=== PATIENT | female | born 1945 | race African-American/Black ===

== ENCOUNTER 2017-02-18 12:45 | Inpatient (IN) | payer OTHER, MEDICAID ==
[2017-02-18] MEDS ORDERED: LEVAQUIN PREMIX IV 750 MG 750 MG/150 ML BAG IV SCH (14:26)
[2017-02-18] MEDS ORDERED: NS 1/2 1000 ML IV 1,000 ML IV ONE (14:36)
[2017-02-18] MEDS ORDERED: SALINE 3% 15 ML NEB TX NEB ONE (14:54)
[2017-02-18] MEDS: NS 1/2 1000 ML IV 1,000 ML IV SCH (15:15)
[2017-02-18 15:39] LABS: BASOPHILS % (AUTO) 0.2 % (0.2-1.0); HEMATOCRIT 35.4 % (36.0-47.0); HEMOGLOBIN 11.6 g/dL (12.0-16.0); LYMPHOCYTES # (AUTO) 0.6 X10^3/uL (1.3-2.9); LYMPHOCYTES % (AUTO) 7.5 % (21.0-51.0); MEAN CORPUSCULAR HEMOGLOBIN 26.7 pg (27.0-34.0); MEAN CORPUSCULAR HGB CONC 32.8 g/dL (33.0-35.0); MEAN CORPUSCULAR VOLUME 81.6 fL (80.0-100.0); MEAN PLATELET VOLUME 9.1 fL (7.4-11.0); MONOCYTES # (AUTO) 0.2 x10^3/uL (0.3-0.8); MONOCYTES % (AUTO) 2.4 % (0.0-13.0); NEUTROPHILS # (AUTO) 7.2 x10^3/uL (2.2-4.8); NEUTROPHILS % (AUTO) 89.9 % (42.0-75.0); PLATELET COUNT 191 X10^3/uL (150.0-450.0); RED BLOOD COUNT 4.33 X10^6/uL (3.5-5.4); RED CELL DISTRIBUTION WIDTH 17.3 % (11.6-16.5)
[2017-02-18 15:57] LABS: ALANINE AMINOTRANSFERASE 25 Units/L (12-78); ALBUMIN 3.1 g/dL (3.4-5.0); ALKALINE PHOSPHATASE 81 Units/L (46-116); ASPARTATE AMINO TRANSFERASE 25 Units/L (15-37); BLOOD UREA NITROGEN 16 mg/dL (7-18); CALCIUM 8.8 mg/dL (8.5-10.1); CARBON DIOXIDE 18.4 mmol/L (21-32); CHLORIDE 107 mmol/L (98-107); COR CA(FOR HYPOALB) 9.5 mg/dL (8.5-10.1); CREATININE 1.28 mg/dL (0.55-1.02); GLUCOSE 99 mg/dL (65-99); SODIUM 141 mmol/L (136-145); TOTAL PROTEIN 7.8 g/dL (6.4-8.2); eGFR BLACK RACES 53 (>60); eGFR NON BLACK RACES 44 (>60)
[2017-02-18 16:31] VITALS: BMI 31.5
[2017-02-18] MEDS ORDERED: PREVNAR 13 IM ONE (16:31)
[2017-02-18] MEDS: ROBITUSSIN DM PO SCH ×2 (16:42→20:28)
[2017-02-18] MEDS: DECADRON JET NEB NEB SCH ×2 (16:45→21:16)
[2017-02-18] MEDS: DUONEB 0.5 MG/3 MG NEB SCH ×2 (16:45→21:16)
--- NOTE | 2017-02-18 17:29 | RAD ---
HISTORY: Pneumonia Study: PA and lateral chest Comparison: October 09, 2016 Findings: The trachea is midline. The cardiac silhouette is unremarkable. The lungs are clear without focal infiltrate or effusion. The bony thorax is unremarkable. IMPRESSION: 1. No acute cardiopulmonary disease. Reported By:
[2017-02-18] MEDS: APRESOLINE TAB 25 MG PO SCH (20:27)
[2017-02-18] MEDS: CATAPRES TAB 0.1 MG PO SCH (20:27)
[2017-02-18] MEDS: LIPITOR TAB 40 MG PO SCH (20:28)
[2017-02-18] MEDS: NEURONTIN CAP 300 MG PO SCH (20:28)
[2017-02-18] MEDS ORDERED: PriLOSEC PO SCH (21:00)
[2017-02-19] MEDS: DUONEB 0.5 MG/3 MG NEB SCH ×6 (01:00→21:01)
[2017-02-19] MEDS ORDERED: NS 1/2 1000 ML IV 1,000 ML IV ONE ×2 (03:43→16:56)
[2017-02-19] MEDS: NS 1/2 1000 ML IV 1,000 ML IV SCH ×2 (04:26→16:59)
[2017-02-19 05:50] LABS: BASOPHILS % (AUTO) 0.4 % (0.2-1.0); HEMOGLOBIN 10.7 g/dL (12.0-16.0); LYMPHOCYTES # (AUTO) 1.4 X10^3/uL (1.3-2.9); LYMPHOCYTES % (AUTO) 15.3 % (21.0-51.0); MEAN CORPUSCULAR HEMOGLOBIN 27.7 pg (27.0-34.0); MEAN CORPUSCULAR HGB CONC 33.6 g/dL (33.0-35.0); MEAN CORPUSCULAR VOLUME 82.3 fL (80.0-100.0); MEAN PLATELET VOLUME 9.3 fL (7.4-11.0); MONOCYTES # (AUTO) 0.4 x10^3/uL (0.3-0.8); NEUTROPHILS # (AUTO) 7.2 x10^3/uL (2.2-4.8); NEUTROPHILS % (AUTO) 80.3 % (42.0-75.0); PLATELET COUNT 182 X10^3/uL (150.0-450.0); RED BLOOD COUNT 3.88 X10^6/uL (3.5-5.4); RED CELL DISTRIBUTION WIDTH 17.3 % (11.6-16.5)
[2017-02-19 05:52] LABS: ALBUMIN 2.7 g/dL (3.4-5.0); CALCIUM 8.2 mg/dL (8.5-10.1); CARBON DIOXIDE 21.9 mmol/L (21-32); COR CA(FOR HYPOALB) 9.2 mg/dL (8.5-10.1); CREATININE 1.24 mg/dL (0.55-1.02); TOTAL PROTEIN 7.2 g/dL (6.4-8.2)
[2017-02-19] MEDS ORDERED: PREVNAR 13 IM ONE (06:18)
[2017-02-19] MEDS: DECADRON JET NEB NEB SCH ×4 (08:53→21:01)
[2017-02-19] MEDS: ALBUMIN HUMAN 25%- 100ML 100 ML IV SCH (09:00)
[2017-02-19] MEDS: CATAPRES TAB 0.1 MG PO SCH ×3 (09:24→21:43)
[2017-02-19] MEDS: ASPIRIN EC 81 MG PO SCH (09:24)
[2017-02-19] MEDS: ZANTAC PO SCH ×2 (09:24→21:43)
[2017-02-19] MEDS: SYNTHROID 112 mcg TAB PO SCH (09:24)
[2017-02-19] MEDS: PLAVIX PO SCH (09:25)
[2017-02-19] MEDS: CELEXA PO SCH (09:27)
[2017-02-19] MEDS: NORVASC TAB 10 MG PO SCH (09:27)
[2017-02-19] MEDS: ROBITUSSIN DM PO SCH ×4 (09:32→21:44)
[2017-02-19] MEDS: CLARITIN PO SCH (09:39)
[2017-02-19] MEDS: LINZESS PO SCH (09:39)
[2017-02-19] MEDS: APRESOLINE TAB 25 MG PO SCH ×2 (09:39→21:42)
[2017-02-19] MEDS: SOLU-Medrol 40 MG VIAL IVP SCH ×3 (14:21→21:44)
--- NOTE | 2017-02-19 16:23 | DR.H&P ---
H&P - History & Physical for Day of: H&P Date: 02/18/17 - Chief Complaint Chief Complaint: SHORTNESS OF BREATH - Allergies Allergies/Adverse Reactions: Allergies Allergy/AdvReac Type Severity Reaction Status Date / Time [place] Allergy Verified 08/27/15 18:43 - History of Present Illness History of Present Illness: THIS IS A 71 YEAR OLD FEMALE, WHO IS DIRECT ADMITTED FOR COPD EXACERBATION AND BRONCHOPNEUMONIA. PATIENT REPORTS SHE HAS BEEN SHORT OF BREATH FOR APPROXIMATELY 5 DAYS. PATIENT STATES THAT SHE HAS BEEN USING HER NEB TREATMENTS DIRECTED WITH NO IMPROVEMENT IN SYMPTOMS. PATIENT HAS AUDIBLE WHEEZING ON ARRIVAL. ON AUSCULTATION, LUNGS ARE NOTED WITH COARSE WHEEZING THROUGHOUT. O2 SATURATION IS 96% ON NASAL CANNULA. LABS AND CXR OBTAINED. CBC WNL EXCEPT: H/H 11.6/35.6. CMP WNL EXCEPT: CARBON DIOXIDE 18.4, CREAT 1.28, GFR 53, ALBUMIN 3.1. CHEST XRAY REPORTS NO ACUTE CARDIOPULMOMARY DISEASE. WE ADMIT PATIENT AND START PNEUMONIA PROTOCOL WITH IV ANTIBIOTICS AND AGGRESSIVE NEB TREATMENTS. WE WILL CONTINUE TO MONITOR AND FOLLOW UP IN AM WITH LABS. - Past Medical History Past Medical History: Anemia, Anxiety, Arthritis, COPD, Coronary Artery Disease , Depression, Dyslipidemia, GERD, Hypertension, Hypothyroidism Additional Medical History: Bronchitis, Pneumonia, Constipation, Hemmorrhoids, Cholelithiasis, Frequent UTI's, Sinusitis, Allergic Rhinitis, Uterine Cancer, Cataracts, Hernia, Muscle Weakness, Previous Blood Transfusion - Past Surgical History Surgical History: Appendectomy, Cholecystectomy, Hysterectomy, Ortho Surgery, Other Additional Surgical History: Cataract surgery, Artificial Vein Grafts in Legs, 1 /2 Left Great Toe Removed - Family History Family Medical History: Cancer, Hypertension - Social History Does patient currently use any type of tobacco product: No Have you used tobacco products in the last 12 months: No Type of Tobacco Use: None Alcohol Use: None Drug Use: None - Medications Home Medications: Amlodipine Besylate [Norvasc] 1 tab PO DAILY 08/27/15 Citalopram 20 mg Tab [CELEXA 20 MG *] 2 tab PO DAILY 08/27/15 Clonidine HCl [CATAPRES 0.1 MG TAB *] 1 tab PO BID 08/27/15 Fluticasone-Salmeterol 500/50 [ADVAIR DISKUS 500/50 60-DOSE *] 1 each INH BID 08/27/15 Hydralazine HCl [Hydralazine HCl 50 mg] 1 tab PO BID 08/27/15 Omeprazole [Prilosec] 1 cap PO BID 08/27/15 Aspirin [Aspirin Adult Low Dose] 81 mg PO DAILY 10/07/16 Atorvastatin Calcium [LIPITOR Tab 40 mg *] 40 mg PO HS 10/07/16 Clopidogrel Bisulfate [PLAVIX TAB 75 MG *] 75 mg PO DAILY 10/07/16 Gabapentin 300 mg PO HS 10/07/16 Linaclotide [Linzess] 290 mcg PO DAILY 10/07/16 Levothyroxine Sodium [SYNTHROID 112 mcg *] 1 tab PO DAILY 10/08/16 Albuterol Neb 2.5MG/ 3Ml [ALBUTEROL NEB 2.5MG/ 3ML *] 1 each INH QID 02/18/17 Loratadine 1 cap PO DAILY 02/18/17 Methylprednisolone 1 tab PO DAILY 02/18/17 Mometasone Furoate-Formoterol [Dulera 200/5 mcg] 1 puff INH BID 02/18/17 - Review of Systems Constitutional: Weakness, Malaise Eyes: No Symptoms Reported. denies: Pain, Vision Change, Conjunctivae Inflammation, Eyelid Inflammation, Redness ENT: No Symptoms Reported. denies: Ear Pain, Ear Discharge, Nose Pain, Nose Discharge, Nose Congestion, Mouth Pain, Mouth Swelling, Throat Pain, Throat Swelling Respiratory: Cough, Shortness of Breath, SOB with Excertion, Sputum, Wheezing. denies: Hemoptysis, Pleuritic Pain Cardiovascular: No Symptoms Reported. denies: Chest Pain, Palpitations, Orthopnea, Paroxysmal Noc. Dyspnea, Edema, Light Headedness Gastrointestinal: No Symptoms Reported. denies: Nausea, Vomiting, Abdominal Pain, Diarrhea, Constipation, Melena, Hematochezia Genitourinary: No Symptoms Reported. denies: Dysuria, Frequency, Incontinence, Hematuria, Retention Musculoskeletal: No Symptoms Reported. denies: Shoulder Pain, Arm Pain, Back Pain, Hand Pain, Leg Pain, Foot Pain, Neck Pain Skin: No Symptoms Reported. denies: Rash, Lesions, Jaundice, Bruising, Wound, Ecchymosis Neurological: No Symptoms Reported. denies: Weakness, Numbness, Incoordination , Change in Speech, Confusion - Physical Exam Vital Signs: Temperature 97.8 F Pulse Rate [Apical] 78 Pulse Rate 70 Respiratory Rate 22 Blood Pressure [Right Arm] 133/59 Blood Pressure [Left Arm] 177/68 Blood Pressure [Left Radial 150/80 Artery] Blood Pressure 159/72 O2 Sat by Pulse Oximetry 98 Oriented: Normal, Time, Person, Place Eyes: Normal. negative: Blurred Vision, Diplopia, Discharge, Pain, Redness, Photophobia Ear: Normal. negative: Swelling, Ecchymosis, Hemotypanum, Abrasion, Laceration Nose: Normal. negative: Injected, Discharge, Blood Throat: Dry. negative: Tonsillar Hypertrophy, Exudate Respiratory: Wheezes Throughout Cardiovascular: Normal. negative: Murmur, Edema : Normal. negative: Dysuria, Hematuria, Frequency, Discharge, Bleeding, Auscultation: Bowel Sounds: Normal. negative: Bruit Palpation: Normal. negative: Spleen Enlarged, Liver Enlarged, Mass Pulsatile Tenderness: Normal. negative: Rebound, Guarding, Rigidity Skin: Normal. negative: Diaphoresis, Wound, Bruising, Ecchymosis Musculoskeletal: Instability Psychiatric: Normal Mood Description: Anxious Affect: Anxious Speech Pattern: Clear, Appropriate - Assessment/Plan (1) COPD (chronic obstructive pulmonary disease) Qualifiers: COPD type: COPD with acute exacerbation Chronic bronchitis type: C Emphysema type: E Qualified Code(s): J44.1 - Chronic obstructive pulmonary disease with (acute) exacerbation Status: Chronic Plan: ADMIT PATIENT, START PNEUMONIA PROTOCOL WITH IV ANTIBIOTICS, NEB TREATMENTS, SUPPLEMENTAL OXGYEN, MONITOR LABS AND CHEST XRAY. (2) Bronchopneumonia Status: Acute Plan: ABOVE. (3) Respiratory distress Status: Acute Plan: ABOVE. (4) Hypertension Qualifiers: Hypertension type: essential hypertension Qualified Code(s): I10 - Essential (primary) hypertension Status: Chronic (5) GERD (gastroesophageal reflux disease) Qualifiers: Esophagitis presence: esophagitis presence not specified Qualified Code(s) : K21.9 - Gastro-esophageal reflux disease without esophagitis Status: Chronic (6) History of anemia Status: Chronic (7) History of uterine cancer Status: Chronic (8) Depression Qualifiers: Depression Type: D Major depression recurrence: M Active/Remission status : A Major depression episode severity: M Psychotic features: P Trimester: T Status: Chronic (9) Hypothyroidism Qualifiers: Hypothyroidism type: due to medication Qualified Code(s): E03.2 - Hypothyroidism due to medicaments and other exogenous substances Status: Chronic (10) Anxiety Status: Chronic (11) Arthritis Status: Chronic
--- NOTE | 2017-02-19 16:33 | PCM.PROG ---
Progress Note - Progress Note for Day of Date: 02/19/17 - Subjective Subjective: PATIENT CONTINUES WITH NON-PRODUCTIVE, PERSISTENT COUGH. PATIENT CONTINUES WITH SHORTNESS OF BREATH AT REST. ON AUSCULTATION, LUNGS ARE NOTED WITH WHEEZING THROUGHOUT. BLOOD PRESSURE IS ELEVATED, 194/76. CBC WNL EXCEPT: H/H 10.7/32.0. CMP WNL EXCEPT: CREAT 1.24, GFR 45, GLUCOSE 116, CALCIUM 8.2, ALBUMIN 2.7. WE WILL START ALUBMIN IV, SOLUMEDROL, AND INCREASE CLONIDINE TO TID FOR HYPERTENSION. WE WILL CONTINUE IV ANTIBIOTICS AND NEB TREATMENTS AND MONITOR. - Past Medical Family Social History Past Med/Fam/Surg Hx: No changes since H&P Allergies: Allergies [place] Allergy (Verified 08/27/15 18:43) - Review of Systems ROS: No change since H&P - Vital Signs and I&O's Vital Signs: Temperature 97.8 F Pulse Rate [Apical] 78 Pulse Rate 70 Respiratory Rate 22 Blood Pressure [Right Arm] 133/59 Blood Pressure [Left Arm] 177/68 Blood Pressure [Left Radial 150/80 Artery] Blood Pressure 159/72 O2 Sat by Pulse Oximetry 98 Intake and Output: Intake & Output 02/17/17 02/18/17 02/19/17 02/20/17 11:59 11:59 11:59 11:59 Intake Total 1509 Output Total 1050 Balance 459 - Physical Exam Oriented: Normal, Time, Person, Place Eyes: Normal. negative: Blurred Vision, Diplopia, Discharge, Pain, Redness, Photophobia Ear: Normal. negative: Swelling, Ecchymosis, Hemotypanum, Abrasion, Laceration Nose: Normal. negative: Injected, Discharge, Blood Throat: Dry. negative: Tonsillar Hypertrophy, Exudate Respiratory: Generalized, Wheezes Cardiovascular: Normal. negative: Murmur, Edema : Normal. negative: Dysuria, Hematuria, Frequency, Discharge, Bleeding, Auscultation: Bowel Sounds: Normal. negative: Bruit Palpation: Normal. negative: Spleen Enlarged, Liver Enlarged, Mass Pulsatile Tenderness: Normal. negative: Rebound, Guarding, Rigidity Skin: Normal. negative: Diaphoresis, Wound, Bruising, Ecchymosis Musculoskeletal: Instability Psychiatric: Normal Mood Description: Calm, Appropriate Affect: Normal Speech Pattern: Clear, Appropriate - Laboratory and Diagnostics Result Diagrams: 02/19/17 03:35 02/19/17 03:35 Labs: 02/18/17 16:30 Sputum - Expectorated Sputum Sputum Culture - Preliminary 02/18/17 16:30 Sputum - Expectorated Sputum - Final Laboratory WBC 9.0 X10^3/uL (3.6-10.0) 02/19/17 03:35 RBC 3.88 X10^6/uL (3.5-5.4) 02/19/17 03:35 Hgb 10.7 g/dL (12.0-16.0) L 02/19/17 03:35 Hct 32.0 % (36.0-47.0) L 02/19/17 03:35 MCV 82.3 fL (80.0-100.0) 02/19/17 03:35 MCH 27.7 pg (27.0-34.0) 02/19/17 03:35 MCHC 33.6 g/dL (33.0-35.0) 02/19/17 03:35 RDW 17.3 % (11.6-16.5) H 02/19/17 03:35 Plt Count 182 X10^3/uL (150.0-450.0) 02/19/17 03:35 MPV 9.3 fL (7.4-11.0) 02/19/17 03:35 Neut % 80.3 % (42.0-75.0) H 02/19/17 03:35 Lymph % 15.3 % (21.0-51.0) L 02/19/17 03:35 [place] % 4.0 % (0.0-13.0) 02/19/17 03:35 Eos % 0.0 % (0.9-2.9) L 02/19/17 03:35 Baso % 0.4 % (0.2-1.0) 02/19/17 03:35 Neut # 7.2 x10^3/uL (2.2-4.8) H 02/19/17 03:35 Lymph # 1.4 X10^3/uL (1.3-2.9) 02/19/17 03:35 [place] # 0.4 x10^3/uL (0.3-0.8) 02/19/17 03:35 Eos # 0.0 x10^3/uL (0.0-0.2) 02/19/17 03:35 Baso # 0.0 X10^3/uL (0.0-0.1) 02/19/17 03:35 Absolute Nucleated RBC 0.0 /100WBC 02/19/17 03:35 Sodium 138 mmol/L (136-145) 02/19/17 03:35 Corrected Sodium 138 mmol/L (136-145) 02/19/17 03:35 Potassium 3.7 mmol/L (3.5-5.1) 02/19/17 03:35 Chloride 106 mmol/L (98-107) 02/19/17 03:35 Carbon Dioxide 21.9 mmol/L (21-32) 02/19/17 03:35 BUN 18 mg/dL (7-18) 02/19/17 03:35 Creatinine 1.24 mg/dL (0.55-1.02) H 02/19/17 03:35 Est GFR (MDRD) Af Amer 55 (>60) L 02/19/17 03:35 Est GFR (MDRD) Non-Af 45 (>60) L 02/19/17 03:35 Glucose 116 mg/dL (65-99) H 02/19/17 03:35 Calcium 8.2 mg/dL (8.5-10.1) L 02/19/17 03:35 Corrected Calcium 9.2 mg/dL (8.5-10.1) 02/19/17 03:35 Total Bilirubin 0.30 mg/dL (0.2-1.0) 02/19/17 03:35 AST 20 Units/L (15-37) 02/19/17 03:35 ALT 25 Units/L (12-78) 02/19/17 03:35 Alkaline Phosphatase 74 Units/L (46-116) 02/19/17 03:35 Total Protein 7.2 g/dL (6.4-8.2) 02/19/17 03:35 Albumin 2.7 g/dL (3.4-5.0) L 02/19/17 03:35 Globulin 4.5 g/dL (2.5-4.5) 02/19/17 03:35 Albumin/Globulin Ratio 0.6 Ratio (1.1-2.1) L 02/19/17 03:35 - Plan (1) COPD (chronic obstructive pulmonary disease) Status: Chronic Qualifiers: COPD type: COPD with acute exacerbation Chronic bronchitis type: C Emphysema type: E Qualified Code(s): J44.1 - Chronic obstructive pulmonary disease with (acute) exacerbation Plan: START SOLUMEDROL, CONTINUE IV ANTIBIOTICS, NEB TREATMENTS, SUPPLEMENTAL OXGYEN, MONITOR LABS AND CHEST XRAY. (2) Bronchopneumonia Status: Acute Plan: ABOVE. (3) Hypoalbuminemia Status: Acute Plan: START ALBUMIN, MONITOR LABS. (4) Respiratory distress Status: Acute Plan: ABOVE. (5) Hypertension Status: Chronic Qualifiers: Hypertension type: essential hypertension Qualified Code(s): I10 - Essential (primary) hypertension Plan: INCREASE CLONIDINE TO TID, MONITOR. 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
[2017-02-19] MEDS: NEURONTIN CAP 300 MG PO SCH (21:42)
[2017-02-19] MEDS: LIPITOR TAB 40 MG PO SCH (21:42)
[2017-02-20] MEDS: DUONEB 0.5 MG/3 MG NEB SCH ×6 (00:28→20:36)
[2017-02-20] MEDS: SOLU-Medrol 40 MG VIAL IVP SCH ×3 (05:54→21:20)
[2017-02-20] MEDS: CATAPRES TAB 0.1 MG PO SCH ×3 (05:54→21:20)
[2017-02-20 06:34] LABS: ALBUMIN 3.2 g/dL (3.4-5.0); CALCIUM 8.6 mg/dL (8.5-10.1); CARBON DIOXIDE 17.8 mmol/L (21-32); COR CA(FOR HYPOALB) 9.2 mg/dL (8.5-10.1); CREATININE 1.16 mg/dL (0.55-1.02); TOTAL PROTEIN 7.6 g/dL (6.4-8.2)
[2017-02-20 07:29] LABS: BASOPHILS % (AUTO) 0 % (0.2-1.0); HEMATOCRIT 31.8 % (36.0-47.0); HEMOGLOBIN 10.6 g/dL (12.0-16.0); LYMPHOCYTES # (AUTO) 0.8 X10^3/uL (1.3-2.9); LYMPHOCYTES % (AUTO) 8.6 % (21.0-51.0); MEAN CORPUSCULAR HEMOGLOBIN 26.7 pg (27.0-34.0); MEAN CORPUSCULAR HGB CONC 33.4 g/dL (33.0-35.0); MEAN CORPUSCULAR VOLUME 80.1 fL (80.0-100.0); MEAN PLATELET VOLUME 8.7 fL (7.4-11.0); MONOCYTES # (AUTO) 0.2 x10^3/uL (0.3-0.8); MONOCYTES % (AUTO) 1.8 % (0.0-13.0); NEUTROPHILS # (AUTO) 8.7 x10^3/uL (2.2-4.8); NEUTROPHILS % (AUTO) 89.6 % (42.0-75.0); PLATELET COUNT 225 X10^3/uL (150.0-450.0); RED BLOOD COUNT 3.97 X10^6/uL (3.5-5.4); RED CELL DISTRIBUTION WIDTH 17.2 % (11.6-16.5); WHITE BLOOD COUNT 9.7 X10^3/uL (3.6-10.0)
[2017-02-20] MEDS ORDERED: NS 1/2 1000 ML IV 1,000 ML IV ONE ×2 (07:38→21:15)
--- NOTE | 2017-02-20 07:47 | RAD ---
HISTORY: Cough and congestion Study: Single view of the chest. Comparison: 02/18/2017 Findings: The cardiomediastinal silhouette is normal. No focal consolidations, pleural effusions or pneumothor ax. Osseous structures demonstrate no acute abnormality. Patchy subsegmental atelectasis in the righ t lung. IMPRESSION: 1. No acute cardiopulmonary process. Patchy subsegmental atelectasis in the right lung may be secon yelena to splinting. Reported By:
[2017-02-20] MEDS: LINZESS PO SCH (07:59)
[2017-02-20] MEDS: ZANTAC PO SCH ×2 (07:59→21:20)
[2017-02-20] MEDS: CLARITIN PO SCH (07:59)
[2017-02-20] MEDS: ASPIRIN EC 81 MG PO SCH (07:59)
[2017-02-20] MEDS: CELEXA PO SCH (07:59)
[2017-02-20] MEDS: NORVASC TAB 10 MG PO SCH (07:59)
[2017-02-20] MEDS: APRESOLINE TAB 25 MG PO SCH ×2 (07:59→21:20)
[2017-02-20] MEDS: ROBITUSSIN DM PO SCH ×4 (08:00→21:20)
[2017-02-20] MEDS: ALBUMIN HUMAN 25%- 100ML 100 ML IV SCH (08:00)
[2017-02-20] MEDS: NS 1/2 1000 ML IV 1,000 ML IV SCH ×4 (08:01→22:27)
[2017-02-20] MEDS: PLAVIX PO SCH (08:02)
[2017-02-20] MEDS: DECADRON JET NEB NEB SCH ×4 (09:13→20:36)
[2017-02-20] MEDS: SYNTHROID 112 mcg TAB PO SCH (09:40)
[2017-02-20] MEDS ORDERED: ROCEPHIN 1 GM IV PREMIX * OUT OF STOCK 50 ML IV ONE (14:51)
[2017-02-20] MEDS: ROCEPHIN VIAL 1 GM 1 GM in NS 50 ML IV + SPIKE MINIBAG* 50 ML IV SCH (15:14)
[2017-02-20] MEDS ORDERED: LEVAQUIN PREMIX IV 750 MG 750 MG/150 ML BAG IV SCH (16:00)
[2017-02-20] MEDS ORDERED: MORPHINE SULFATE INJ 2 MG IVP PRN (17:38)
[2017-02-20] MEDS: NEURONTIN CAP 300 MG PO SCH (21:20)
[2017-02-20] MEDS: TUSSIONEX PENNKINETIC SUSP PO PRN (21:20)
[2017-02-20] MEDS: LIPITOR TAB 40 MG PO SCH (21:20)
[2017-02-21] MEDS: DUONEB 0.5 MG/3 MG NEB SCH ×6 (00:49→21:35)
[2017-02-21] MEDS: CATAPRES TAB 0.1 MG PO SCH ×3 (05:21→21:34)
[2017-02-21] MEDS: SOLU-Medrol 40 MG VIAL IVP SCH ×3 (05:21→21:34)
[2017-02-21 05:27] LABS: BASOPHILS % (AUTO) 0.1 % (0.2-1.0); HEMATOCRIT 31.7 % (36.0-47.0); HEMOGLOBIN 10.6 g/dL (12.0-16.0); LYMPHOCYTES # (AUTO) 0.9 X10^3/uL (1.3-2.9); LYMPHOCYTES % (AUTO) 7.4 % (21.0-51.0); MEAN CORPUSCULAR HEMOGLOBIN 27.7 pg (27.0-34.0); MEAN CORPUSCULAR HGB CONC 33.3 g/dL (33.0-35.0); MEAN CORPUSCULAR VOLUME 83.3 fL (80.0-100.0); MEAN PLATELET VOLUME 9.2 fL (7.4-11.0); MONOCYTES # (AUTO) 0.3 x10^3/uL (0.3-0.8); MONOCYTES % (AUTO) 2.9 % (0.0-13.0); NEUTROPHILS # (AUTO) 10.4 x10^3/uL (2.2-4.8); NEUTROPHILS % (AUTO) 89.6 % (42.0-75.0); PLATELET COUNT 237 X10^3/uL (150.0-450.0); RED BLOOD COUNT 3.81 X10^6/uL (3.5-5.4); RED CELL DISTRIBUTION WIDTH 17.1 % (11.6-16.5); WHITE BLOOD COUNT 11.6 X10^3/uL (3.6-10.0)
[2017-02-21 05:39] LABS: ALANINE AMINOTRANSFERASE 25 Units/L (12-78); ALBUMIN 3.4 g/dL (3.4-5.0); ALKALINE PHOSPHATASE 68 Units/L (46-116); ASPARTATE AMINO TRANSFERASE 16 Units/L (15-37); BLOOD UREA NITROGEN 16 mg/dL (7-18); CALCIUM 8.5 mg/dL (8.5-10.1); CARBON DIOXIDE 20.4 mmol/L (21-32); CHLORIDE 107 mmol/L (98-107); COR NA(FOR HYPERGLY) 141 mmol/L (136-145); CREATININE 1.31 mg/dL (0.55-1.02); GLUCOSE 140 mg/dL (65-99); SODIUM 140 mmol/L (136-145); TOTAL PROTEIN 7.5 g/dL (6.4-8.2); eGFR BLACK RACES 51 (>60); eGFR NON BLACK RACES 42 (>60)
[2017-02-21 06:20] LABS: BAND NEUTROPHILS % 2 % (0-10)
[2017-02-21 06:21] LABS: PLATELET MORPHOLOGY COMMENT NORMAL (NORMAL)
--- NOTE | 2017-02-21 07:31 | RAD ---
HISTORY: Cough and congestion Study: Single view of the chest. Comparison: 02/20/2017 Findings: The cardiomediastinal silhouette is normal. No focal consolidations, pleural effusions or pneumothor ax. Osseous structures demonstrate no acute abnormality. IMPRESSION: 1. No acute cardiopulmonary process. Reported By:
[2017-02-21] MEDS: ROBITUSSIN DM PO SCH ×4 (08:19→20:30)
[2017-02-21] MEDS: ZANTAC PO SCH ×2 (08:20→20:31)
[2017-02-21] MEDS: LINZESS PO SCH (08:20)
[2017-02-21] MEDS: PLAVIX PO SCH (08:20)
[2017-02-21] MEDS: CLARITIN PO SCH (08:20)
[2017-02-21] MEDS: NORVASC TAB 10 MG PO SCH (08:20)
[2017-02-21] MEDS: ASPIRIN EC 81 MG PO SCH (08:21)
[2017-02-21] MEDS: CELEXA PO SCH (08:21)
[2017-02-21] MEDS: APRESOLINE TAB 25 MG PO SCH ×2 (08:21→20:31)
[2017-02-21] MEDS: SYNTHROID 112 mcg TAB PO SCH (08:21)
[2017-02-21] MEDS: ALBUMIN HUMAN 25%- 100ML 100 ML IV SCH (08:21)
[2017-02-21] MEDS: ROCEPHIN VIAL 1 GM 1 GM in NS 50 ML IV + SPIKE MINIBAG* 50 ML IV SCH (08:22)
[2017-02-21] MEDS: DECADRON JET NEB NEB SCH ×4 (08:45→21:35)
[2017-02-21] MEDS ORDERED: NS 1/2 1000 ML IV 1,000 ML IV ONE ×2 (12:04→23:29)
[2017-02-21] MEDS: NS 1/2 1000 ML IV 1,000 ML IV SCH ×2 (12:08→23:38)
[2017-02-21] MEDS: TUSSIONEX PENNKINETIC SUSP PO PRN (20:30)
[2017-02-21] MEDS: LIPITOR TAB 40 MG PO SCH (20:31)
[2017-02-21] MEDS: NEURONTIN CAP 300 MG PO SCH (20:31)
[2017-02-22] MEDS: DUONEB 0.5 MG/3 MG NEB SCH ×4 (00:49→12:01)
[2017-02-22 04:56] LABS: BASOPHILS % (AUTO) 0.2 % (0.2-1.0); HEMATOCRIT 32.2 % (36.0-47.0); HEMOGLOBIN 10.8 g/dL (12.0-16.0); LYMPHOCYTES # (AUTO) 0.8 X10^3/uL (1.3-2.9); MEAN CORPUSCULAR HEMOGLOBIN 27.8 pg (27.0-34.0); MEAN CORPUSCULAR HGB CONC 33.4 g/dL (33.0-35.0); MEAN PLATELET VOLUME 8.8 fL (7.4-11.0); MONOCYTES # (AUTO) 0.5 x10^3/uL (0.3-0.8); MONOCYTES % (AUTO) 4.2 % (0.0-13.0); NEUTROPHILS # (AUTO) 9.6 x10^3/uL (2.2-4.8); NEUTROPHILS % (AUTO) 88.6 % (42.0-75.0); PLATELET COUNT 260 X10^3/uL (150.0-450.0); RED BLOOD COUNT 3.88 X10^6/uL (3.5-5.4); WHITE BLOOD COUNT 10.9 X10^3/uL (3.6-10.0)
[2017-02-22 05:14] LABS: ALANINE AMINOTRANSFERASE 31 Units/L (12-78); ALBUMIN 3.4 g/dL (3.4-5.0); ALKALINE PHOSPHATASE 64 Units/L (46-116); ASPARTATE AMINO TRANSFERASE 25 Units/L (15-37); BLOOD UREA NITROGEN 17 mg/dL (7-18); CALCIUM 8.6 mg/dL (8.5-10.1); CARBON DIOXIDE 20.5 mmol/L (21-32); CHLORIDE 108 mmol/L (98-107); COR NA(FOR HYPERGLY) 143 mmol/L (136-145); CREATININE 1.17 mg/dL (0.55-1.02); GLUCOSE 123 mg/dL (65-99); SODIUM 142 mmol/L (136-145); TOTAL PROTEIN 7.2 g/dL (6.4-8.2); eGFR BLACK RACES 58 (>60); eGFR NON BLACK RACES 48 (>60)
[2017-02-22] MEDS: CATAPRES TAB 0.1 MG PO SCH ×2 (05:27→13:51)
[2017-02-22] MEDS: SOLU-Medrol 40 MG VIAL IVP SCH (05:27)
[2017-02-22] MEDS: NS 1/2 1000 ML IV 1,000 ML IV SCH (05:28)
--- NOTE | 2017-02-22 06:32 | RAD ---
HISTORY: Shortness of breath Study: Chest one view Comparison: February 21, 2017 Findings: The heart is upper limits normal in size. The khadar are normal. The aorta is calcified. No congestive heart failure is noted. The lungs are hyperinflated with the exception of some subsegmental atelect asis in the right perihilar region. No pleural effusions or infiltrates are identified. The bony tho rax is unremarkable. IMPRESSION: No definite acute findings Hyperinflation Reported By:
[2017-02-22] MEDS: ALBUMIN HUMAN 25%- 100ML 100 ML IV SCH (08:28)
[2017-02-22] MEDS: ROCEPHIN VIAL 1 GM 1 GM in NS 50 ML IV + SPIKE MINIBAG* 50 ML IV SCH (08:31)
[2017-02-22] MEDS: SYNTHROID 112 mcg TAB PO SCH (08:32)
[2017-02-22] MEDS: CELEXA PO SCH (08:32)
[2017-02-22] MEDS: ZANTAC PO SCH (08:32)
[2017-02-22] MEDS: ROBITUSSIN DM PO SCH ×2 (08:32→13:51)
[2017-02-22] MEDS: CLARITIN PO SCH (08:32)
[2017-02-22] MEDS: ASPIRIN EC 81 MG PO SCH (08:33)
[2017-02-22] MEDS: NORVASC TAB 10 MG PO SCH (08:33)
[2017-02-22] MEDS: APRESOLINE TAB 25 MG PO SCH (08:33)
[2017-02-22] MEDS: PLAVIX PO SCH (08:34)
[2017-02-22] MEDS: LINZESS PO SCH (08:35)
[2017-02-22] MEDS: DECADRON JET NEB NEB SCH ×2 (09:05→12:01)
[2017-02-22] MEDS ORDERED: LASIX IVP ONE (09:16)
[2017-02-22 14:07] VITALS: BP 152/54
== END 2017-02-22 15:10 | disposition home health service (06) | DRG 190 ==
LOC: ICU 12:45 → OBSVTOIN 02-20 08:10
PROVIDERS: ADMIT Internal Medicine; ATTEND Internal Medicine
PROC: 3E0234Z Introduction of Serum, Toxoid and Vaccine into Muscle, Percutaneous Approach (ICD-10-PCS; principal; 2017-02-19)
DX: J44.1 Chronic obstructive pulmonary disease with (acute) exacerbation (principal); J15.5 Pneumonia due to Escherichia coli; R06.02 Shortness of breath; I25.10 Atherosclerotic heart disease of native coronary artery without angina pectoris; E78.2 Mixed hyperlipidemia; K21.9 Gastro-esophageal reflux disease without esophagitis; E03.8 Other specified hypothyroidism; M13.89 Other specified arthritis, multiple sites; R06.09 Other forms of dyspnea; F41.8 Other specified anxiety disorders
CPT/HCPCS: 36415; 71010; 71020; 80053; 85025; 87040; 87070; 87077; 87186; 87205; 94640; A4222; P9047; 90670; G0378; J0696; J1940; J1956; J2270; J2920; J7620

== ENCOUNTER 2017-05-26 13:23 | Emergency (ER) | payer OTHER, MEDICAID ==
[2017-05-26 13:32] VITALS: BP 151/67; BMI 24.7
[2017-05-26] MEDS ORDERED: SOLU-Medrol 125 MG VIAL IVP ONE (15:06)
[2017-05-26] MEDS ORDERED: DUONEB 0.5 MG/3 MG NEB ONE (15:06)
--- NOTE | 2017-05-26 15:08 | DR.SOBA ---
HPI - Time Seen Time seen: 15:00 - Primary Care Physician Primary Care Physician: BRIEN - HPI Comment HPI Comment: PATIENT HAVE COPD. INCREASING SOB BREATH TODAY. PRODUCTIVE COUGH, SPUTUM YELLOW NOW. NO FEVER. CHEST TIGHTNESS. HOME MED DID NOT HELP. - Complaints Chief Complaint Doctors Comments: SOB, COUGH Chief Complaint:: SHORT OF BREATH Self Treatment fo Chief Complaint: BREATHING TREATMENT AND OXYGEN ON AT 2 LPM. - Reviewed Nurses Notes Reviewed: Yes - Source History Provided: Patient - Mode of Arrival Mode of Arrival: Ambulatory - Timing Onset of Chief Complaint: 05/26/17 - Duration Duration: Hours - Context Onset:: At Rest PE Risk Factors:: None History of:: COPD Prehospital Care:: Inhaled B2 - Modifying Factors Worsens:: Exertion Improves:: Nothing - Associated Signs and Symptoms Associated Signs and Symptoms: Wheeze, Cough - If Chest Pain Quality: Other (TIGHTNESS) Location: Right Upper Chest, Right Lower Chest, Left Upper Chest, Left Lower Chest - If Cough Cough: Nonproductive, Yellow PMH - PMH Past Medical History: Yes Past Medical History: Anemia, Anxiety, Arthritis, COPD, Coronary Artery Disease , Depression, Dyslipidemia, GERD, Hypertension, Hypothyroidism Past Surgical History: Yes Surgical History: Appendectomy, Cholecystectomy, Hysterectomy, Ortho Surgery, Other - Family History History of Family Medical Conditions: Yes Family Medical History: Cancer, Hypertension - Social History Does patient currently use any type of tobacco product: Yes Have you used tobacco products in the last 12 months: Yes Type of Tobacco Use: Cigarettes Does any household member use tobacco: No Alcohol Use: Rarely Do you use any recreational Drugs:: No Lives With: Spouse Lives Where: Home - infectious screening In the last 2 months have you had wt loss of >10#?: NO Have you had fever, night sweats or hemotysis?: No Have you traveled outside the country in the last 6 months?: No Isolation: Standard ROS - Review of Systems Constitutional: Weakness, Fatigue. negative: Chills, Fever Eyes: No Symptoms Reported. negative: Eye Pain, Discharge ENTM: Nose Discharge, Nose Congestion, Throat Pain. negative: Ear Pain Respiratoy: Productive Cough, Short of Breath, Wheezing. negative: Hemoptysis Cardiovascular: Chest Pain. negative: Edema, Palpitations, Syncope Gastrointestinal/Abdominal: No Symptoms Reported. negative: Abdominal Pain, Diarrhea, Nausea, Vomiting Genitourinary: negative: Dysuria, Frequency, Hematuria Neurological: No Symptoms Reported, Weakness, Dizziness. negative: Headache Musculoskeletal: Muscle Pain Integumentary: No Symptoms Reported Hematologic/Lymphatic: No Symptoms Reported Endocrine: No Symptoms Reported All Other Systems: Reviewed and Negative PE - Vital Signs Vitals: Temperature 98.8 F Pulse Rate 74 Respiratory Rate 20 Blood Pressure [Right Arm] 152/54 Blood Pressure [Left Arm] 177/68 Blood Pressure [Left Radial 150/80 Artery] Blood Pressure 151/67 O2 Sat by Pulse Oximetry 100 - General Limitations: No Limitations General Appearance: Alert - Head Head Exam: Normal Inspection - Eyes Eye exam: Normal Appearance - ENT ENT Exam: Normal External Ear Exam - Neck Neck Exam: Trachea Midline. negative: Tenderness, Meningismus, Lymphadenopathy - Chest Chest Inspection: Symmetric Chest Wall Rise - Respiratory Respiratory Exam: Accessory Muscle Use, Prolonged Expiratory Phase, Respiratory Distress Respiratory Exam: Bilateral Wheezing, Bilateral Rhonchi, Upper Wheezing, Upper Rhonchi, Lower Wheezing, Lower Rhonchi - Cardiovascular Cardiovascular Exam: Regular Rate, Normal Rhythm, Normal Heart Sounds - Abdominal Exam Abdominal Exam: Normal Bowel Sounds, Soft. negative: Tenderness - Extremities Extremities Exam: Normal Inspection - Back Back Exam: Normal Inspection - Neurologic Neurological Exam: Alert, Oriented X3 - Psychiatric Psychiatric Exam: Anxious - Skin Skin Exam: Normal Color MDM - Additional Information Obtained Additional Information Obtained From: Family - Differential Diagnosis Differential Diagnosis: COPD, Mycardial Infarction, Pneumonia, Pneumothorax Course - Treatment Treatment: SEE ORDERS. - Education/Counseling Education/Counseling: Patient, Education Educated On: Treatment, Diagnosis, Needs for Follow Up ROR - Labs Reviewed Laboratory Results Reviewed?: Yes Result Diagrams: 05/26/17 15:12 05/26/17 15:12 Laboratory: WBC 6.4 X10^3/uL (3.6-10.0) 05/26/17 15:12 RBC 4.46 X10^6/uL (3.5-5.4) 05/26/17 15:12 Hgb 12.3 g/dL (12.0-16.0) 05/26/17 15:12 Hct 36.4 % (36.0-47.0) 05/26/17 15:12 MCV 81.5 fL (80.0-100.0) 05/26/17 15:12 MCH 27.4 pg (27.0-34.0) 05/26/17 15:12 MCHC 33.7 g/dL (33.0-35.0) 05/26/17 15:12 RDW 18.0 % (11.6-16.5) H 05/26/17 15:12 Plt Count 215 X10^3/uL (150.0-450.0) 05/26/17 15:12 MPV 9.0 fL (7.4-11.0) 05/26/17 15:12 Neut % 73.9 % (42.0-75.0) 05/26/17 15:12 Lymph % 17.7 % (21.0-51.0) L 05/26/17 15:12 [place] % 7.6 % (0.0-13.0) 05/26/17 15:12 Eos % 0.1 % (0.9-2.9) L 05/26/17 15:12 Baso % 0.7 % (0.2-1.0) 05/26/17 15:12 Neut # 4.8 x10^3/uL (2.2-4.8) 05/26/17 15:12 Lymph # 1.1 X10^3/uL (1.3-2.9) L 05/26/17 15:12 [place] # 0.5 x10^3/uL (0.3-0.8) 05/26/17 15:12 Eos # 0.0 x10^3/uL (0.0-0.2) 05/26/17 15:12 Baso # 0.0 X10^3/uL (0.0-0.1) 05/26/17 15:12 Absolute Nucleated RBC 0.1 /100WBC 05/26/17 15:12 Sodium 138 mmol/L (136-145) 05/26/17 15:12 Corrected Sodium TNP 05/26/17 15:12 Potassium 4.6 mmol/L (3.5-5.1) 05/26/17 15:12 Chloride 105 mmol/L (98-107) 05/26/17 15:12 Carbon Dioxide 24.8 mmol/L (21-32) 05/26/17 15:12 BUN 25 mg/dL (7-18) H 05/26/17 15:12 Creatinine 1.61 mg/dL (0.55-1.02) H 05/26/17 15:12 Est GFR (MDRD) Af Amer 40 (>60) L 05/26/17 15:12 Est GFR (MDRD) Non-Af 33 (>60) L 05/26/17 15:12 Glucose 88 mg/dL (65-99) 05/26/17 15:12 Calcium 8.3 mg/dL (8.5-10.1) L 05/26/17 15:12 Corrected Calcium TNP 05/26/17 15:12 Total Bilirubin 0.20 mg/dL (0.2-1.0) 05/26/17 15:12 AST 23 Units/L (15-37) 05/26/17 15:12 ALT 27 Units/L (12-78) 05/26/17 15:12 Alkaline Phosphatase 74 Units/L (46-116) 05/26/17 15:12 Creatine Kinase 120 Units/L (26-192) 05/26/17 15:12 CK-MB (CK-2) < 1.0 ng/mL (0-4.0) 05/26/17 15:12 CK/CKMB % Calc 0.8 % (<4) 05/26/17 15:12 Troponin I < 0.02 ng/mL (0-1.5) 05/26/17 15:12 Total Protein 8.0 g/dL (6.4-8.2) 05/26/17 15:12 Albumin 3.7 g/dL (3.4-5.0) 05/26/17 15:12 Globulin 4.3 g/dL (2.5-4.5) 05/26/17 15:12 Albumin/Globulin Ratio 0.9 Ratio (1.1-2.1) L 05/26/17 15:12 - XRAY XRAY Interpreted by: Radiologist XRAY Findings: REPORT DISCUSS WITH PATIENT. - EKG Rhythm: NSR (EKG NOTED) - Diagnosis Discharge Problem: COPD (chronic obstructive pulmonary disease) with acute bronchitis Chest pain Qualifiers: Chest pain type: unspecified Qualified Code(s): R07.9 - Chest pain, unspecified - Discharge Plan Disposition: 01 HOME, SELF-CARE Condition: Stable Prescriptions: Amoxicillin & Pot Clavulanate [AUGMENTIN TAB 875 mg/125 mg *] 1 tab PO BID #20 tab Prednisone [Prednisone Tab 10 mg] 10 mg PO QAM #7 tab - Follow ups/Referrals Follow ups/Referrals: Arsh Fuentes [Primary Care Provider] - 3 days - Instructions Instructions: Chronic Obstructive Pulmonary Disease Exacerbation, Acute Bronchitis, [id number]
[2017-05-26] MEDS ORDERED: DUONEB 0.5 MG/3 MG ONE (15:13)
[2017-05-26 15:19] LABS: BASOPHILS % (AUTO) 0.7 % (0.2-1.0); EOSINOPHILS % (AUTO) 0.1 % (0.9-2.9); HEMATOCRIT 36.4 % (36.0-47.0); HEMOGLOBIN 12.3 g/dL (12.0-16.0); LYMPHOCYTES # (AUTO) 1.1 X10^3/uL (1.3-2.9); LYMPHOCYTES % (AUTO) 17.7 % (21.0-51.0); MEAN CORPUSCULAR HEMOGLOBIN 27.4 pg (27.0-34.0); MEAN CORPUSCULAR HGB CONC 33.7 g/dL (33.0-35.0); MEAN CORPUSCULAR VOLUME 81.5 fL (80.0-100.0); MONOCYTES # (AUTO) 0.5 x10^3/uL (0.3-0.8); MONOCYTES % (AUTO) 7.6 % (0.0-13.0); NEUTROPHILS # (AUTO) 4.8 x10^3/uL (2.2-4.8); NEUTROPHILS % (AUTO) 73.9 % (42.0-75.0); PLATELET COUNT 215 X10^3/uL (150.0-450.0); RED BLOOD COUNT 4.46 X10^6/uL (3.5-5.4); WHITE BLOOD COUNT 6.4 X10^3/uL (3.6-10.0)
[2017-05-26 15:42] LABS: BLOOD UREA NITROGEN 25 mg/dL (7-18); CALCIUM 8.3 mg/dL (8.5-10.1); CARBON DIOXIDE 24.8 mmol/L (21-32); CHLORIDE 105 mmol/L (98-107); CREATININE 1.61 mg/dL (0.55-1.02); GLUCOSE 88 mg/dL (65-99); SODIUM 138 mmol/L (136-145); TROPONIN I < 0.02 ng/mL (0-1.5); eGFR BLACK RACES 40 (>60); eGFR NON BLACK RACES 33 (>60)
[2017-05-26 15:46] LABS: ALANINE AMINOTRANSFERASE 27 Units/L (12-78); ALBUMIN 3.7 g/dL (3.4-5.0); ALKALINE PHOSPHATASE 74 Units/L (46-116); ASPARTATE AMINO TRANSFERASE 23 Units/L (15-37); CKMB % 0.8 % (<4); CREATINE KINASE 120 Units/L (26-192); CREATINE KINASE MB < 1.0 ng/mL (0-4.0)
[2017-05-26] MEDS ORDERED: SOLU-Medrol 125 MG VIAL ONE (15:50)
--- NOTE | 2017-05-26 15:50 | RAD ---
HISTORY: Chest pain Study: Chest one view Comparison: None Findings: The trachea is midline. The cardiac silhouette is enlarged. No congestive heart failure is noted.. The lungs are clear without focal infiltrate or effusion. The bony thorax is unremarkable. IMPRESSION: 1. Mild cardiomegaly without congestive heart failure 2. Lungs clear Reported By:
[2017-05-26] MEDS ORDERED: ROCEPHIN VIAL 1 GM 1 GM in NS 50 ML IV + SPIKE MINIBAG* 50 ML IV ONE (16:46)
[2017-05-26] MEDS ORDERED: ROCEPHIN 1 GM IV PREMIX * OUT OF STOCK 50 ML IV ONE (16:52)
== END 2017-05-26 17:31 | disposition home or self-care (01) ==
LOC: ER 13:35
DX: J44.1 Chronic obstructive pulmonary disease with (acute) exacerbation (principal); R07.89 Other chest pain; I51.7 Cardiomegaly
CPT/HCPCS: 36415; 71010; 80053; 82550; 82553; 84484; 85025; 93005; 93010; 94640; 96365; 96374; 96375; 99283; A4222; J0696; J2930; J7620

== ENCOUNTER 2017-06-22 11:22 | Inpatient (IN) | payer OTHER, MEDICAID ==
[2017-06-22] MEDS ORDERED: REFLEX: PROVENTIL NEB & PulmiCORT NEB~ NEB SCH (12:42)
[2017-06-22] MEDS ORDERED: FORTAZ or TAZICEF INJ 1 GM in NS 50 ML IV + SPIKE MINIBAG* 50 ML IV SCH (12:42)
[2017-06-22] MEDS ORDERED: TUSSIONEX PENNKINETIC SUSP PO PRN (12:42)
[2017-06-22] MEDS: DUONEB 0.5 MG/3 MG NEB SCH ×4 (12:45→20:30)
[2017-06-22] MEDS ORDERED: SALINE 3% 15 ML NEB TX ONE (12:54)
[2017-06-22] MEDS ORDERED: PROVENTIL NEB TX 0.083% 2.5MG/ 3ML NEB SCH (13:00)
[2017-06-22 13:32] LABS: BASOPHILS % (AUTO) 0.8 % (0.2-1.0); EOSINOPHILS % (AUTO) 0.3 % (0.9-2.9); HEMATOCRIT 33.3 % (36.0-47.0); HEMOGLOBIN 11.2 g/dL (12.0-16.0); LYMPHOCYTES % (AUTO) 31.7 % (21.0-51.0); MEAN CORPUSCULAR HEMOGLOBIN 27.4 pg (27.0-34.0); MEAN CORPUSCULAR HGB CONC 33.8 g/dL (33.0-35.0); MEAN PLATELET VOLUME 9.1 fL (7.4-11.0); MONOCYTES # (AUTO) 0.4 x10^3/uL (0.3-0.8); MONOCYTES % (AUTO) 6.9 % (0.0-13.0); NEUTROPHILS # (AUTO) 3.9 x10^3/uL (2.2-4.8); NEUTROPHILS % (AUTO) 60.3 % (42.0-75.0); PLATELET COUNT 234 X10^3/uL (150.0-450.0); RED CELL DISTRIBUTION WIDTH 17.4 % (11.6-16.5); WHITE BLOOD COUNT 6.5 X10^3/uL (3.6-10.0)
[2017-06-22 13:44] LABS: ALANINE AMINOTRANSFERASE 21 Units/L (12-78); ALBUMIN 3.4 g/dL (3.4-5.0); ALKALINE PHOSPHATASE 74 Units/L (46-116); ASPARTATE AMINO TRANSFERASE 23 Units/L (15-37); BLOOD UREA NITROGEN 16 mg/dL (7-18); CALCIUM 8.8 mg/dL (8.5-10.1); CARBON DIOXIDE 20.6 mmol/L (21-32); CHLORIDE 107 mmol/L (98-107); CREATININE 1.66 mg/dL (0.55-1.02); SODIUM 140 mmol/L (136-145); TOTAL PROTEIN 7.7 g/dL (6.4-8.2); eGFR BLACK RACES 39 (>60); eGFR NON BLACK RACES 32 (>60)
--- NOTE | 2017-06-22 14:12 | RAD ---
HISTORY: Shortness of breath Study: PA and lateral chest Comparison: May 26, 2017 Findings: The trachea is midline. The cardiac silhouette is normal with a tortuous descending thoracic aorta.. The lungs are clear without focal infiltrate or effusion. The bony thorax is unremarkable. There are cholecystectomy clips. IMPRESSION: 1. No acute cardiopulmonary disease. Reported By:
--- NOTE | 2017-06-22 14:15 | RAD ---
History: Left shoulder pain Study: Three views left shoulder including transscapular and internal and external rotation Comparison: None Findings: There are moderate osteophytes about the AC joint. There is a severe spur off the acromion laterally with associated spur off the superior lateral humeral head. There is a mild spur about the glenohumeral joint inferiorly. There is narrowing of the subacromial joint space. Impression: Moderately severe subacromial impingement 2. AC joint osteoarthritis 3. Minimal glenohumeral joint osteoarthritis Reported By:
[2017-06-22] MEDS ORDERED: NS 1/2 1000 ML IV 1,000 ML IV ONE (14:19)
[2017-06-22] MEDS: NS 1/2 1000 ML IV 1,000 ML IV SCH (14:35)
[2017-06-22] MEDS: LEVAQUIN PREMIX IV 750 MG 750 MG/150 ML BAG IV SCH (14:36)
[2017-06-22] MEDS: SOLU-Medrol 125 MG VIAL IVP SCH ×3 (14:36→21:01)
[2017-06-22] MEDS: ROBITUSSIN DM PO SCH ×3 (14:36→21:00)
[2017-06-22 15:42] VITALS: BMI 24.3
[2017-06-22] MEDS ORDERED: PREVNAR 13 IM ONE (15:42)
[2017-06-22] MEDS: PULMICORT NEB TX 0.5 MG NEB SCH (20:30)
[2017-06-22] MEDS: APRESOLINE TAB 25 MG PO SCH (21:00)
[2017-06-22] MEDS: CATAPRES TAB 0.1 MG PO SCH (21:00)
[2017-06-22] MEDS: FORTAZ or TAZICEF INJ 1 GM in NS 50 ML IV 50 ML IV SCH (21:01)
[2017-06-23] MEDS: NORMODYNE INJ 20 MG VIAL IV PRN ×2 (00:08→00:34)
[2017-06-23] MEDS ORDERED: VISTARIL PO PRN (01:21)
[2017-06-23] MEDS ORDERED: CATAPRES TAB 0.1 MG PO ONE (01:33)
[2017-06-23] MEDS ORDERED: APRESOLINE INJ 20 MG VIAL IVP ONE (03:51)
[2017-06-23] MEDS ORDERED: NS 1/2 1000 ML IV 1,000 ML IV ONE ×2 (05:32→21:26)
[2017-06-23] MEDS: FORTAZ or TAZICEF INJ 1 GM in NS 50 ML IV 50 ML IV SCH ×3 (05:40→21:29)
[2017-06-23] MEDS: SOLU-Medrol 125 MG VIAL IVP SCH ×3 (05:40→21:30)
[2017-06-23] MEDS: NS 1/2 1000 ML IV 1,000 ML IV SCH ×2 (05:40→21:27)
[2017-06-23 05:45] LABS: BASOPHILS % (AUTO) 0.2 % (0.2-1.0); HEMATOCRIT 34.2 % (36.0-47.0); HEMOGLOBIN 11.4 g/dL (12.0-16.0); LYMPHOCYTES # (AUTO) 1.1 X10^3/uL (1.3-2.9); LYMPHOCYTES % (AUTO) 17.7 % (21.0-51.0); MEAN CORPUSCULAR HEMOGLOBIN 27.8 pg (27.0-34.0); MEAN CORPUSCULAR HGB CONC 33.4 g/dL (33.0-35.0); MEAN CORPUSCULAR VOLUME 83.3 fL (80.0-100.0); MEAN PLATELET VOLUME 9.4 fL (7.4-11.0); MONOCYTES # (AUTO) 0.2 x10^3/uL (0.3-0.8); MONOCYTES % (AUTO) 2.5 % (0.0-13.0); NEUTROPHILS # (AUTO) 4.9 x10^3/uL (2.2-4.8); NEUTROPHILS % (AUTO) 79.6 % (42.0-75.0); PLATELET COUNT 223 X10^3/uL (150.0-450.0); RED BLOOD COUNT 4.11 X10^6/uL (3.5-5.4); WHITE BLOOD COUNT 6.2 X10^3/uL (3.6-10.0)
[2017-06-23 05:56] LABS: ALBUMIN 3.2 g/dL (3.4-5.0); CALCIUM 8.9 mg/dL (8.5-10.1); CARBON DIOXIDE 20.1 mmol/L (21-32); COR CA(FOR HYPOALB) 9.5 mg/dL (8.5-10.1); CREATININE 1.47 mg/dL (0.55-1.02); TOTAL PROTEIN 7.7 g/dL (6.4-8.2)
[2017-06-23] MEDS: ROBITUSSIN DM PO SCH ×5 (08:27→21:28)
[2017-06-23] MEDS: APRESOLINE TAB 25 MG PO SCH ×2 (08:27→21:30)
[2017-06-23] MEDS: CATAPRES TAB 0.1 MG PO SCH (08:27)
[2017-06-23] MEDS: LEVAQUIN PREMIX IV 750 MG 750 MG/150 ML BAG IV SCH (08:28)
[2017-06-23] MEDS: DUONEB 0.5 MG/3 MG NEB SCH ×4 (09:41→20:13)
[2017-06-23] MEDS: PULMICORT NEB TX 0.5 MG NEB SCH ×2 (09:41→20:13)
[2017-06-23] MEDS ORDERED: MOMETASONE INH SCH (09:45)
[2017-06-23] MEDS ORDERED: PATIENT'S HOME MEDICATION (Aspirin [Aspirin] 81 MG) PO SCH (09:45)
[2017-06-23] MEDS ORDERED: LINACLOTIDE 290 MCG PO SCH (09:45)
[2017-06-23] MEDS ORDERED: PATIENT'S HOME MEDICATION (Loratadine [Loratadine] 1 TAB) PO SCH (09:45)
[2017-06-23] MEDS ORDERED: FORMOTEROL INH SCH (09:45)
[2017-06-23] MEDS ORDERED: FLUTICASONE SALMETEROL INH SCH (09:45)
[2017-06-23] MEDS ORDERED: CATAPRES-TTS-3 TD SCH (10:00)
[2017-06-23] MEDS ORDERED: PROTONIX TAB 40 MG PO SCH (10:00)
--- NOTE | 2017-06-23 11:40 | DR.UPDATE ---
H&P Update History and Physical Update: WAS SEEN IN THE OFFICE ON 06/22/17. A H&P WAS COMPLETED PRIOR TO ADMISSION. PATIENT HAS BEEN SEEN AND EXAMINED WITH NO CHANGES NOTED TO H&P. Changes noted: NO Yes with the following:
[2017-06-23] MEDS: ASPIRIN EC 81 MG PO SCH (11:43)
[2017-06-23] MEDS: PriLOSEC PO SCH ×2 (11:43→21:30)
[2017-06-23] MEDS: ZANTAC PO SCH ×2 (11:43→21:30)
[2017-06-23] MEDS: NORVASC TAB 5 MG PO SCH (11:43)
[2017-06-23] MEDS: CLARITIN PO SCH (11:43)
[2017-06-23] MEDS: MAXZIDE 37.5/25 MG PO SCH (11:43)
[2017-06-23] MEDS: PLAVIX PO SCH (11:44)
[2017-06-23] MEDS: CELEXA PO SCH (11:44)
[2017-06-23] MEDS: SYNTHROID 112 mcg TAB PO SCH (11:44)
[2017-06-23] MEDS: LINZESS PO SCH (11:44)
--- NOTE | 2017-06-23 18:38 | PCM.PROG ---
Progress Note - Progress Note for Day of Date: 06/23/17 - Subjective Subjective: WAS ADMITTED FOR REFRACTORY PNEUMONIA. SHE IS ALERT AND ORIENTED, LYING IN BED ON MORNING ROUNDS. TODAY, SHE IS NOTED WITH COMPLAINTS OF PRODUCTIVE COUGH AND SHORTNESS OF BREATH. ON EXAMINATION, LUNGS WERE NOTED WITH WHEEZING AND RHONCHI BILATERALLY TO AUSCULTATION. ABDOMEN IS SOFT, ROUND, AND NON-TENDER. BOWEL SOUNDS ARE NORMAL IN ALL QUADRANTS. SHE IS NOTED ON NASAL CANNULA WITH OXYGEN AT 2LPM. HER VITAL SIGNS THIS MORNING ARE 98.4-70-18-98%-190 /78. CBC AND CMP WERE OBTAINED. ABNORMAL LABS INCLUDE THE FOLLOWING: HGB 11.4, HCT 34.2, CARBON DIOXIDE 20.1, CREATININE 1.47, GLUCOSE 117, ALBUMIN 3.2. QUINTON'S BLOOD PRESSURE HAS REMAINED ELEVATED THROUGHOUT THE NIGHT. WE WILL DISCONTINUE THE HYDRALAZINE, AND CLONIDINE THAT PATIENT IS CURRENTLY ON. WE WILL START CLONIDONE 0.3MG PATCH, AMLODIPINE 5MG DAILY, LOSARTAN 100MG HS. WE PLAN TO OBTAIN A CBC AND CMP IN THE MORNING AND CONTINUE TO MONITOR PATIENT. - Past Medical Family Social History Past Med/Fam/Surg Hx: No changes since H&P Allergies: Allergies strawberry Allergy (Verified 04/19/17 13:25) labetalol Adverse Reaction (Verified 06/23/17 01:25) - Review of Systems ROS: No change since H&P - Vital Signs and I&O's Vital Signs: Temperature 98.8 F Pulse Rate [Right Brachial] 69 Pulse Rate 64 Respiratory Rate 20 Blood Pressure [Right Arm] 173/72 Blood Pressure [Left Arm] 177/68 Blood Pressure [Left Radial 150/80 Artery] Blood Pressure 151/67 O2 Sat by Pulse Oximetry 96 Intake and Output: Intake & Output 06/21/17 06/22/17 06/23/17 06/24/17 11:59 11:59 11:59 11:59 Intake Total 2026 132 Output Total 0 Balance 2026 132 - Physical Exam Oriented: Normal Eyes: Normal Ear: Normal Nose: Normal Throat: Normal Respiratory: Generalized, Wheezes, Rhonchi Cardiovascular: Normal : Normal Auscultation: Bowel Sounds: Normal Palpation: Normal Tenderness: Normal Skin: Normal Musculoskeletal: Normal Psychiatric: Normal Mood Description: Calm Affect: Normal Speech Pattern: Clear, Appropriate - Laboratory and Diagnostics Result Diagrams: 06/25/17 03:40 06/25/17 03:40 Labs: 06/22/17 14:14 Sputum - Expectorated Sputum Sputum Culture - Preliminary 06/22/17 14:14 Sputum - Expectorated Sputum - Final Laboratory WBC 6.2 X10^3/uL (3.6-10.0) 06/23/17 03:25 RBC 4.11 X10^6/uL (3.5-5.4) 06/23/17 03:25 Hgb 11.4 g/dL (12.0-16.0) L 06/23/17 03:25 Hct 34.2 % (36.0-47.0) L 06/23/17 03:25 MCV 83.3 fL (80.0-100.0) 06/23/17 03:25 MCH 27.8 pg (27.0-34.0) 06/23/17 03:25 MCHC 33.4 g/dL (33.0-35.0) 06/23/17 03:25 RDW 17.0 % (11.6-16.5) H 06/23/17 03:25 Plt Count 223 X10^3/uL (150.0-450.0) 06/23/17 03:25 MPV 9.4 fL (7.4-11.0) 06/23/17 03:25 Neut % 79.6 % (42.0-75.0) H 06/23/17 03:25 Lymph % 17.7 % (21.0-51.0) L 06/23/17 03:25 [place] % 2.5 % (0.0-13.0) 06/23/17 03:25 Eos % 0.0 % (0.9-2.9) L 06/23/17 03:25 Baso % 0.2 % (0.2-1.0) 06/23/17 03:25 Neut # 4.9 x10^3/uL (2.2-4.8) H 06/23/17 03:25 Lymph # 1.1 X10^3/uL (1.3-2.9) L 06/23/17 03:25 [place] # 0.2 x10^3/uL (0.3-0.8) L 06/23/17 03:25 Eos # 0.0 x10^3/uL (0.0-0.2) 06/23/17 03:25 Baso # 0.0 X10^3/uL (0.0-0.1) 06/23/17 03:25 Absolute Nucleated RBC 0.1 /100WBC 06/23/17 03:25 Sodium 137 mmol/L (136-145) 06/23/17 03:25 Corrected Sodium 137 mmol/L (136-145) 06/23/17 03:25 Potassium 4.8 mmol/L (3.5-5.1) 06/23/17 03:25 Chloride 105 mmol/L (98-107) 06/23/17 03:25 Carbon Dioxide 20.1 mmol/L (21-32) L 06/23/17 03:25 BUN 18 mg/dL (7-18) 06/23/17 03:25 Creatinine 1.47 mg/dL (0.55-1.02) H 06/23/17 03:25 Est GFR (MDRD) Af Amer 45 (>60) L 06/23/17 03:25 Est GFR (MDRD) Non-Af 37 (>60) L 06/23/17 03:25 Glucose 117 mg/dL (65-99) H 06/23/17 03:25 Calcium 8.9 mg/dL (8.5-10.1) 06/23/17 03:25 Corrected Calcium 9.5 mg/dL (8.5-10.1) 06/23/17 03:25 Total Bilirubin 0.20 mg/dL (0.2-1.0) 06/23/17 03:25 AST 20 Units/L (15-37) 06/23/17 03:25 ALT 22 Units/L (12-78) 06/23/17 03:25 Alkaline Phosphatase 73 Units/L (46-116) 06/23/17 03:25 Total Protein 7.7 g/dL (6.4-8.2) 06/23/17 03:25 Albumin 3.2 g/dL (3.4-5.0) L 06/23/17 03:25 Globulin 4.5 g/dL (2.5-4.5) 06/23/17 03:25 Albumin/Globulin Ratio 0.7 Ratio (1.1-2.1) L 06/23/17 03:25 - Plan (1) Bronchopneumonia Status: Acute Plan: FORTAZ IV, LEVAQUIN IV, SUPPLEMENTAL OXYGEN, DUONEBS, CONTINUE TO MONITOR (2) Hypertension Status: Chronic Qualifiers: Hypertension type: essential hypertension Qualified Code(s): I10 - Essential (primary) hypertension Plan: CLONIDINE 0.3MG PATCH WEEKLY, NORVASC 5MG DAILY, LOSARTAN 100MG DAILY, HYDRALAZINE 50MG BID, CONTINUE TO MONITOR
[2017-06-23] MEDS: LIPITOR TAB 40 MG PO SCH (21:30)
[2017-06-23] MEDS: NEURONTIN CAP 300 MG PO SCH (21:30)
[2017-06-23] MEDS: COZAAR PO SCH (22:28)
[2017-06-24] MEDS: SOLU-Medrol 125 MG VIAL IVP SCH ×3 (05:57→21:25)
[2017-06-24] MEDS: FORTAZ or TAZICEF INJ 1 GM in NS 50 ML IV 50 ML IV SCH ×3 (05:57→21:24)
[2017-06-24 06:17] LABS: BASOPHILS % (AUTO) 0.2 % (0.2-1.0); HEMATOCRIT 33.2 % (36.0-47.0); HEMOGLOBIN 11.1 g/dL (12.0-16.0); LYMPHOCYTES % (AUTO) 10.9 % (21.0-51.0); MEAN CORPUSCULAR HEMOGLOBIN 27.5 pg (27.0-34.0); MEAN CORPUSCULAR HGB CONC 33.4 g/dL (33.0-35.0); MEAN CORPUSCULAR VOLUME 82.3 fL (80.0-100.0); MEAN PLATELET VOLUME 9.6 fL (7.4-11.0); MONOCYTES # (AUTO) 0.2 x10^3/uL (0.3-0.8); MONOCYTES % (AUTO) 2.4 % (0.0-13.0); NEUTROPHILS # (AUTO) 8.3 x10^3/uL (2.2-4.8); NEUTROPHILS % (AUTO) 86.5 % (42.0-75.0); PLATELET COUNT 223 X10^3/uL (150.0-450.0); RED BLOOD COUNT 4.03 X10^6/uL (3.5-5.4); RED CELL DISTRIBUTION WIDTH 17.4 % (11.6-16.5); WHITE BLOOD COUNT 9.6 X10^3/uL (3.6-10.0)
[2017-06-24 06:49] LABS: CALCIUM 8.9 mg/dL (8.5-10.1); CARBON DIOXIDE 19.6 mmol/L (21-32); COR CA(FOR HYPOALB) 9.7 mg/dL (8.5-10.1); CREATININE 1.46 mg/dL (0.55-1.02)
[2017-06-24] MEDS: NS 1/2 1000 ML IV 1,000 ML IV SCH ×2 (07:47→12:59)
[2017-06-24] MEDS: DUONEB 0.5 MG/3 MG NEB SCH ×4 (08:38→19:55)
[2017-06-24] MEDS: PULMICORT NEB TX 0.5 MG NEB SCH ×2 (08:38→19:55)
--- NOTE | 2017-06-24 08:38 | RAD ---
Chest AP portable Indication: Dyspnea. Comparison: June 22, 2017. Findings: There is no pneumothorax, effusion or consolidation. Heart size is within normal limits fo r technique, perhaps slightly enlarged. Impression: No acute chest process. Borderline enlarged heart. Reported By:
[2017-06-24] MEDS: APRESOLINE TAB 25 MG PO SCH ×2 (08:58→21:25)
[2017-06-24] MEDS: ASPIRIN EC 81 MG PO SCH (08:58)
[2017-06-24] MEDS: CELEXA PO SCH (08:58)
[2017-06-24] MEDS: MAXZIDE 37.5/25 MG PO SCH (08:59)
[2017-06-24] MEDS: LEVAQUIN PREMIX IV 750 MG 750 MG/150 ML BAG IV SCH (08:59)
[2017-06-24] MEDS: LINZESS PO SCH (08:59)
[2017-06-24] MEDS: NORVASC TAB 5 MG PO SCH (08:59)
[2017-06-24] MEDS: CLARITIN PO SCH (08:59)
[2017-06-24] MEDS: COZAAR PO SCH (08:59)
[2017-06-24] MEDS: PriLOSEC PO SCH ×2 (09:00→21:25)
[2017-06-24] MEDS: ROBITUSSIN DM PO SCH ×4 (09:00→21:25)
[2017-06-24] MEDS: PLAVIX PO SCH (09:00)
[2017-06-24] MEDS: SYNTHROID 112 mcg TAB PO SCH (09:01)
[2017-06-24] MEDS: ZANTAC PO SCH ×2 (09:01→21:24)
[2017-06-24] MEDS ORDERED: NS 1/2 1000 ML IV 1,000 ML IV ONE (12:25)
[2017-06-24] MEDS: NEURONTIN CAP 300 MG PO SCH (21:24)
[2017-06-24] MEDS: LIPITOR TAB 40 MG PO SCH (21:24)
[2017-06-25] MEDS ORDERED: NS 1/2 1000 ML IV 1,000 ML IV ONE ×2 (00:07→17:03)
[2017-06-25] MEDS: DUONEB 0.5 MG/3 MG NEB SCH ×6 (01:22→20:16)
[2017-06-25] MEDS: NS 1/2 1000 ML IV 1,000 ML IV SCH ×2 (01:37→17:14)
[2017-06-25] MEDS: SOLU-Medrol 125 MG VIAL IVP SCH (06:03)
[2017-06-25] MEDS: FORTAZ or TAZICEF INJ 1 GM in NS 50 ML IV 50 ML IV SCH ×3 (06:03→21:05)
[2017-06-25 06:15] LABS: BASOPHILS % (AUTO) 0.1 % (0.2-1.0); HEMATOCRIT 32.9 % (36.0-47.0); LYMPHOCYTES # (AUTO) 0.9 X10^3/uL (1.3-2.9); LYMPHOCYTES % (AUTO) 7.3 % (21.0-51.0); MEAN CORPUSCULAR HEMOGLOBIN 27.4 pg (27.0-34.0); MEAN CORPUSCULAR HGB CONC 33.5 g/dL (33.0-35.0); MEAN CORPUSCULAR VOLUME 81.8 fL (80.0-100.0); MEAN PLATELET VOLUME 9.3 fL (7.4-11.0); MONOCYTES # (AUTO) 0.4 x10^3/uL (0.3-0.8); MONOCYTES % (AUTO) 3.6 % (0.0-13.0); NEUTROPHILS # (AUTO) 10.6 x10^3/uL (2.2-4.8); PLATELET COUNT 235 X10^3/uL (150.0-450.0); RED BLOOD COUNT 4.03 X10^6/uL (3.5-5.4); RED CELL DISTRIBUTION WIDTH 17.3 % (11.6-16.5); WHITE BLOOD COUNT 11.9 X10^3/uL (3.6-10.0)
[2017-06-25] MEDS ORDERED: CATAPRES TAB 0.1 MG PO PRN (06:22)
[2017-06-25 06:54] LABS: ALBUMIN 2.9 g/dL (3.4-5.0); CALCIUM 8.8 mg/dL (8.5-10.1); CARBON DIOXIDE 19.9 mmol/L (21-32); COR CA(FOR HYPOALB) 9.7 mg/dL (8.5-10.1); CREATININE 1.45 mg/dL (0.55-1.02); TOTAL PROTEIN 6.9 g/dL (6.4-8.2)
--- NOTE | 2017-06-25 07:11 | RAD ---
Chest AP portable dyspnea. Comparison: June 24, 2017. Findings: There is no pneumothorax, effusion or consolidation. Heart size is within normal limits for technique. Impression: No acute chest process. Reported By:
[2017-06-25] MEDS: APRESOLINE TAB 25 MG PO SCH ×3 (09:13→21:05)
[2017-06-25] MEDS: CLARITIN PO SCH (09:13)
[2017-06-25] MEDS: NORVASC TAB 5 MG PO SCH (09:13)
[2017-06-25] MEDS: LINZESS PO SCH (09:13)
[2017-06-25] MEDS: MAXZIDE 37.5/25 MG PO SCH (09:13)
[2017-06-25] MEDS: ASPIRIN EC 81 MG PO SCH (09:13)
[2017-06-25] MEDS: ZANTAC PO SCH ×2 (09:13→20:31)
[2017-06-25] MEDS: COZAAR PO SCH (09:13)
[2017-06-25] MEDS: CELEXA PO SCH (09:14)
[2017-06-25] MEDS: ROBITUSSIN DM PO SCH ×4 (09:14→20:32)
[2017-06-25] MEDS: PLAVIX PO SCH (09:14)
[2017-06-25] MEDS: LEVAQUIN PREMIX IV 750 MG 750 MG/150 ML BAG IV SCH (09:14)
[2017-06-25] MEDS: SYNTHROID 112 mcg TAB PO SCH (09:14)
[2017-06-25] MEDS: PriLOSEC PO SCH ×2 (09:14→21:05)
--- NOTE | 2017-06-25 11:48 | PCM.PROG ---
Progress Note - Progress Note for Day of Date: 06/24/17 - Subjective Subjective: WAS ADMITTED FOR REFRACTORY PNEUMONIA. SHE IS ALERT AND ORIENTED, LYING IN BED ON MORNING ROUNDS. TODAY, SHE IS CONTINUES WITH COMPLAINTS OF PRODUCTIVE COUGH AND SHORTNESS OF BREATH. ON EXAMINATION, LUNGS CONTINUE WITH WHEEZING AND RHONCHI BILATERALLY TO AUSCULTATION. ABDOMEN IS SOFT , ROUND, AND NON-TENDER. BOWEL SOUNDS ARE NORMAL IN ALL QUADRANTS. SHE IS NOTED ON NASAL CANNULA WITH OXYGEN AT 2LPM. HER VITAL SIGNS THIS MORNING ARE 99.1-72- 18-99%-185/81. CBC AND CMP WERE OBTAINED. ABNORMAL LABS INCLUDE THE FOLLOWING: HGB 11.0, HCT 32.9, CHLORIDE 108, CARBON DIOXIDE 19.6, BUN 21, CREATININE 1.46, GLUCOSE 114, ALBUMIN 3.0. PATIENT'S BLOOD PRESSURE HAS REMAINED ELEVATED DESPITE CHANGES TO MEDICATION. WE WILL INCRESASE NORVASC TO 10MG DAILY, OTHERWISE CONTINUE WITH CURRENT PLAN OF CARE. WE PLAN TO OBTAIN A CBC AND CMP IN THE MORNING AND CONTINUE TO MONITOR PATIENT. - Past Medical Family Social History Past Med/Fam/Surg Hx: No changes since H&P Allergies: Allergies strawberry Allergy (Verified 04/19/17 13:25) labetalol Adverse Reaction (Verified 06/23/17 01:25) - Review of Systems ROS: No change since H&P - Vital Signs and I&O's Vital Signs: Temperature 98.1 F Pulse Rate [Right Brachial] 78 Pulse Rate 82 Respiratory Rate 20 Blood Pressure [Right Arm] 198/84 Blood Pressure [Left Arm] 177/68 Blood Pressure [Left Radial 150/80 Artery] Blood Pressure 151/67 O2 Sat by Pulse Oximetry 96 Intake and Output: Intake & Output 06/22/17 06/23/17 06/24/17 06/25/17 11:59 11:59 11:59 11:59 Intake Total 2026 3552 2420 Output Total 0 3500 4150 Balance 2026 52 -1730 - Physical Exam Oriented: Normal Eyes: Normal Ear: Normal Nose: Normal Throat: Normal Respiratory: Generalized, Wheezes, Rhonchi Cardiovascular: Normal : Normal Auscultation: Bowel Sounds: Normal Palpation: Normal Tenderness: Normal Skin: Normal Musculoskeletal: Normal Psychiatric: Normal Mood Description: Calm Affect: Normal Speech Pattern: Clear, Appropriate - Laboratory and Diagnostics Result Diagrams: 06/25/17 03:40 06/25/17 03:40 Labs: 06/22/17 13:09 Blood Blood Culture - Preliminary 06/22/17 13:08 Blood Blood Culture - Preliminary 06/22/17 14:14 Sputum - Expectorated Sputum Sputum Culture - Preliminary 06/22/17 14:14 Sputum - Expectorated Sputum - Final Laboratory WBC 11.9 X10^3/uL (3.6-10.0) H 06/25/17 03:40 RBC 4.03 X10^6/uL (3.5-5.4) 06/25/17 03:40 Hgb 11.0 g/dL (12.0-16.0) L 06/25/17 03:40 Hct 32.9 % (36.0-47.0) L 06/25/17 03:40 MCV 81.8 fL (80.0-100.0) 06/25/17 03:40 MCH 27.4 pg (27.0-34.0) 06/25/17 03:40 MCHC 33.5 g/dL (33.0-35.0) 06/25/17 03:40 RDW 17.3 % (11.6-16.5) H 06/25/17 03:40 Plt Count 235 X10^3/uL (150.0-450.0) 06/25/17 03:40 MPV 9.3 fL (7.4-11.0) 06/25/17 03:40 Neut % 89.0 % (42.0-75.0) H 06/25/17 03:40 Lymph % 7.3 % (21.0-51.0) L 06/25/17 03:40 [place] % 3.6 % (0.0-13.0) 06/25/17 03:40 Eos % 0.0 % (0.9-2.9) L 06/25/17 03:40 Baso % 0.1 % (0.2-1.0) L 06/25/17 03:40 Neut # 10.6 x10^3/uL (2.2-4.8) H 06/25/17 03:40 Lymph # 0.9 X10^3/uL (1.3-2.9) L 06/25/17 03:40 [place] # 0.4 x10^3/uL (0.3-0.8) 06/25/17 03:40 Eos # 0.0 x10^3/uL (0.0-0.2) 06/25/17 03:40 Baso # 0.0 X10^3/uL (0.0-0.1) 06/25/17 03:40 Absolute Nucleated RBC 0.0 /100WBC 06/25/17 03:40 Sodium 140 mmol/L (136-145) 06/25/17 03:40 Corrected Sodium 140 mmol/L (136-145) 06/25/17 03:40 Potassium 4.3 mmol/L (3.5-5.1) 06/25/17 03:40 Chloride 108 mmol/L (98-107) H 06/25/17 03:40 Carbon Dioxide 19.9 mmol/L (21-32) L 06/25/17 03:40 BUN 23 mg/dL (7-18) H 06/25/17 03:40 Creatinine 1.45 mg/dL (0.55-1.02) H 06/25/17 03:40 Est GFR (MDRD) Af Amer 46 (>60) L 06/25/17 03:40 Est GFR (MDRD) Non-Af 38 (>60) L 06/25/17 03:40 Glucose 114 mg/dL (65-99) H 06/25/17 03:40 Calcium 8.8 mg/dL (8.5-10.1) 06/25/17 03:40 Corrected Calcium 9.7 mg/dL (8.5-10.1) 06/25/17 03:40 Total Bilirubin 0.20 mg/dL (0.2-1.0) 06/25/17 03:40 AST 16 Units/L (15-37) 06/25/17 03:40 ALT 19 Units/L (12-78) 06/25/17 03:40 Alkaline Phosphatase 58 Units/L (46-116) 06/25/17 03:40 Total Protein 6.9 g/dL (6.4-8.2) 06/25/17 03:40 Albumin 2.9 g/dL (3.4-5.0) L 06/25/17 03:40 Globulin 4.0 g/dL (2.5-4.5) 06/25/17 03:40 Albumin/Globulin Ratio 0.7 Ratio (1.1-2.1) L 06/25/17 03:40 - Plan (1) Bronchopneumonia Status: Acute Plan: FORTAZ IV, LEVAQUIN IV, SUPPLEMENTAL OXYGEN, DUONEBS, CONTINUE TO MONITOR (2) Hypertension Status: Chronic Qualifiers: Hypertension type: essential hypertension Qualified Code(s): I10 - Essential (primary) hypertension Plan: CLONIDINE 0.3MG PATCH WEEKLY, NORVASC 10 MG DAILY, LOSARTAN 100MG DAILY, HYDRALAZINE 50MG BID, CONTINUE TO MONITOR
--- NOTE | 2017-06-25 11:53 | PCM.PROG ---
Progress Note - Progress Note for Day of Date: 06/25/17 - Subjective Subjective: WAS ADMITTED FOR REFRACTORY PNEUMONIA. SHE IS ALERT AND ORIENTED, LYING IN BED ON MORNING ROUNDS. TODAY, SHE IS CONTINUES WITH COMPLAINTS OF PRODUCTIVE COUGH, SHORTNESS OF BREATH, AND INCREASED BLOOD PRESSURE. ON EXAMINATION, LUNGS CONTINUE WITH WHEEZING AND RHONCHI BILATERALLY TO AUSCULTATION. ABDOMEN IS SOFT, ROUND, AND NON-TENDER. BOWEL SOUNDS ARE NORMAL IN ALL QUADRANTS. SHE IS NOTED ON NASAL CANNULA WITH OXYGEN AT 2LPM. HER VITAL SIGNS THIS MORNING ARE 98.8-87-20-100%-188/79. CBC AND CMP WERE OBTAINED. ABNORMAL LABS INCLUDE THE FOLLOWING: HGB 11.0, HCT 32.9, CHLORIDE 108, CARBON DIOXIDE 19.9, BUN 23, CREATININE 1.45, GLUCOSE 114, ALBUMIN 2.9. PATIENT'S BLOOD PRESSURE HAS REMAINED ELEVATED DESPITE CHANGES TO MEDICATION. WE WILL INCRESASE HYDRALAZINE TO 100MG TID, OTHERWISE CONTINUE WITH CURRENT PLAN OF CARE. WE PLAN TO OBTAIN A CBC AND CMP IN THE MORNING AND CONTINUE TO MONITOR PATIENT. - Past Medical Family Social History Past Med/Fam/Surg Hx: No changes since H&P Allergies: Allergies strawberry Allergy (Verified 04/19/17 13:25) labetalol Adverse Reaction (Verified 06/23/17 01:25) - Review of Systems ROS: No change since H&P - Vital Signs and I&O's Vital Signs: Temperature 98.1 F Pulse Rate [Right Brachial] 78 Pulse Rate 82 Respiratory Rate 20 Blood Pressure [Right Arm] 198/84 Blood Pressure [Left Arm] 177/68 Blood Pressure [Left Radial 150/80 Artery] Blood Pressure 151/67 O2 Sat by Pulse Oximetry 96 Intake and Output: Intake & Output 06/22/17 06/23/17 06/24/17 06/25/17 11:59 11:59 11:59 11:59 Intake Total 2026 3552 2420 Output Total 0 3500 4150 Balance 2026 52 -1730 - Physical Exam Oriented: Normal Eyes: Normal Ear: Normal Nose: Normal Throat: Normal Respiratory: Generalized, Wheezes, Rhonchi Cardiovascular: Normal : Normal Auscultation: Bowel Sounds: Normal Palpation: Normal Tenderness: Normal Skin: Normal Musculoskeletal: Normal Psychiatric: Normal Mood Description: Calm Affect: Normal Speech Pattern: Clear, Appropriate - Laboratory and Diagnostics Result Diagrams: 06/25/17 03:40 06/25/17 03:40 Labs: 06/22/17 13:09 Blood Blood Culture - Preliminary 06/22/17 13:08 Blood Blood Culture - Preliminary 06/22/17 14:14 Sputum - Expectorated Sputum Sputum Culture - Preliminary 06/22/17 14:14 Sputum - Expectorated Sputum - Final Laboratory WBC 11.9 X10^3/uL (3.6-10.0) H 06/25/17 03:40 RBC 4.03 X10^6/uL (3.5-5.4) 06/25/17 03:40 Hgb 11.0 g/dL (12.0-16.0) L 06/25/17 03:40 Hct 32.9 % (36.0-47.0) L 06/25/17 03:40 MCV 81.8 fL (80.0-100.0) 06/25/17 03:40 MCH 27.4 pg (27.0-34.0) 06/25/17 03:40 MCHC 33.5 g/dL (33.0-35.0) 06/25/17 03:40 RDW 17.3 % (11.6-16.5) H 06/25/17 03:40 Plt Count 235 X10^3/uL (150.0-450.0) 06/25/17 03:40 MPV 9.3 fL (7.4-11.0) 06/25/17 03:40 Neut % 89.0 % (42.0-75.0) H 06/25/17 03:40 Lymph % 7.3 % (21.0-51.0) L 06/25/17 03:40 [place] % 3.6 % (0.0-13.0) 06/25/17 03:40 Eos % 0.0 % (0.9-2.9) L 06/25/17 03:40 Baso % 0.1 % (0.2-1.0) L 06/25/17 03:40 Neut # 10.6 x10^3/uL (2.2-4.8) H 06/25/17 03:40 Lymph # 0.9 X10^3/uL (1.3-2.9) L 06/25/17 03:40 [place] # 0.4 x10^3/uL (0.3-0.8) 06/25/17 03:40 Eos # 0.0 x10^3/uL (0.0-0.2) 06/25/17 03:40 Baso # 0.0 X10^3/uL (0.0-0.1) 06/25/17 03:40 Absolute Nucleated RBC 0.0 /100WBC 06/25/17 03:40 Sodium 140 mmol/L (136-145) 06/25/17 03:40 Corrected Sodium 140 mmol/L (136-145) 06/25/17 03:40 Potassium 4.3 mmol/L (3.5-5.1) 06/25/17 03:40 Chloride 108 mmol/L (98-107) H 06/25/17 03:40 Carbon Dioxide 19.9 mmol/L (21-32) L 06/25/17 03:40 BUN 23 mg/dL (7-18) H 06/25/17 03:40 Creatinine 1.45 mg/dL (0.55-1.02) H 06/25/17 03:40 Est GFR (MDRD) Af Amer 46 (>60) L 06/25/17 03:40 Est GFR (MDRD) Non-Af 38 (>60) L 06/25/17 03:40 Glucose 114 mg/dL (65-99) H 06/25/17 03:40 Calcium 8.8 mg/dL (8.5-10.1) 06/25/17 03:40 Corrected Calcium 9.7 mg/dL (8.5-10.1) 06/25/17 03:40 Total Bilirubin 0.20 mg/dL (0.2-1.0) 06/25/17 03:40 AST 16 Units/L (15-37) 06/25/17 03:40 ALT 19 Units/L (12-78) 06/25/17 03:40 Alkaline Phosphatase 58 Units/L (46-116) 06/25/17 03:40 Total Protein 6.9 g/dL (6.4-8.2) 06/25/17 03:40 Albumin 2.9 g/dL (3.4-5.0) L 06/25/17 03:40 Globulin 4.0 g/dL (2.5-4.5) 06/25/17 03:40 Albumin/Globulin Ratio 0.7 Ratio (1.1-2.1) L 06/25/17 03:40 - Plan (1) Bronchopneumonia Status: Acute Plan: FORTAZ IV, LEVAQUIN IV, SUPPLEMENTAL OXYGEN, DUONEBS, CONTINUE TO MONITOR (2) Hypertension Status: Chronic Qualifiers: Hypertension type: essential hypertension Qualified Code(s): I10 - Essential (primary) hypertension Plan: CLONIDINE 0.3MG PATCH WEEKLY, NORVASC 10 MG DAILY, LOSARTAN 100MG DAILY, HYDRALAZINE 100MG TID, CONTINUE TO MONITOR
[2017-06-25] MEDS: PULMICORT NEB TX 0.5 MG NEB SCH ×2 (13:51→20:16)
[2017-06-25] MEDS: LIPITOR TAB 40 MG PO SCH (20:30)
[2017-06-25] MEDS: NEURONTIN CAP 300 MG PO SCH (20:31)
[2017-06-26] MEDS: NS 1/2 1000 ML IV 1,000 ML IV SCH ×2 (01:10→14:52)
[2017-06-26] MEDS: APRESOLINE TAB 25 MG PO SCH ×2 (05:21→13:44)
[2017-06-26] MEDS: FORTAZ or TAZICEF INJ 1 GM in NS 50 ML IV 50 ML IV SCH ×2 (05:21→13:44)
[2017-06-26 06:09] LABS: BASOPHILS % (AUTO) 0.3 % (0.2-1.0); EOSINOPHILS % (AUTO) 0.1 % (0.9-2.9); HEMATOCRIT 31.5 % (36.0-47.0); HEMOGLOBIN 10.6 g/dL (12.0-16.0); LYMPHOCYTES # (AUTO) 2.8 X10^3/uL (1.3-2.9); LYMPHOCYTES % (AUTO) 23.2 % (21.0-51.0); MEAN CORPUSCULAR HEMOGLOBIN 27.1 pg (27.0-34.0); MEAN CORPUSCULAR HGB CONC 33.7 g/dL (33.0-35.0); MEAN CORPUSCULAR VOLUME 80.4 fL (80.0-100.0); MEAN PLATELET VOLUME 8.7 fL (7.4-11.0); MONOCYTES # (AUTO) 1.2 x10^3/uL (0.3-0.8); MONOCYTES % (AUTO) 9.7 % (0.0-13.0); NEUTROPHILS # (AUTO) 8.1 x10^3/uL (2.2-4.8); NEUTROPHILS % (AUTO) 66.7 % (42.0-75.0); PLATELET COUNT 226 X10^3/uL (150.0-450.0); RED BLOOD COUNT 3.92 X10^6/uL (3.5-5.4); RED CELL DISTRIBUTION WIDTH 17.3 % (11.6-16.5); WHITE BLOOD COUNT 12.1 X10^3/uL (3.6-10.0)
[2017-06-26 06:19] LABS: ALBUMIN 2.6 g/dL (3.4-5.0); CALCIUM 8.7 mg/dL (8.5-10.1); CARBON DIOXIDE 22.4 mmol/L (21-32); COR CA(FOR HYPOALB) 9.8 mg/dL (8.5-10.1); CREATININE 1.4 mg/dL (0.55-1.02); TOTAL PROTEIN 6.1 g/dL (6.4-8.2)
--- NOTE | 2017-06-26 07:01 | RAD ---
HISTORY: Short of breath Study: Single view of the chest. Comparison: 06/25/2017 Findings: The cardiomediastinal silhouette is normal. No focal consolidations, pleural effusions or pneumothora x.. IMPRESSION: 1. No acute cardiopulmonary process. Reported By:
[2017-06-26] MEDS ORDERED: K-RIDER 10 MEQ/NS 100 ML 10 MEQ/100 ML BAG IV PRN (07:17)
[2017-06-26] MEDS ORDERED: K-LYTE EFFERVESCENT PO PRN (07:17)
[2017-06-26] MEDS ORDERED: K-DUR TAB 20 MEQ PO PRN (07:17)
[2017-06-26] MEDS ORDERED: POTASSIUM CHLORIDE LIQ 20 MEQ UDC PO PRN (07:17)
[2017-06-26] MEDS: ASPIRIN EC 81 MG PO SCH (08:45)
[2017-06-26] MEDS: CELEXA PO SCH (08:45)
[2017-06-26] MEDS: CLARITIN PO SCH (08:46)
[2017-06-26] MEDS: COZAAR PO SCH (08:46)
[2017-06-26] MEDS: LINZESS PO SCH (08:46)
[2017-06-26] MEDS: PriLOSEC PO SCH (08:46)
[2017-06-26] MEDS: ZANTAC PO SCH (08:47)
[2017-06-26] MEDS: SYNTHROID 112 mcg TAB PO SCH (08:47)
[2017-06-26] MEDS: ROBITUSSIN DM PO SCH ×2 (08:48→13:44)
[2017-06-26] MEDS: MAXZIDE 37.5/25 MG PO SCH (08:48)
[2017-06-26] MEDS: PLAVIX PO SCH (08:50)
[2017-06-26] MEDS: LEVAQUIN PREMIX IV 750 MG 750 MG/150 ML BAG IV SCH (08:50)
[2017-06-26] MEDS: NORVASC TAB 5 MG PO SCH (08:50)
[2017-06-26] MEDS: DUONEB 0.5 MG/3 MG NEB SCH ×3 (09:08→16:16)
[2017-06-26] MEDS: PULMICORT NEB TX 0.5 MG NEB SCH (09:08)
[2017-06-26 12:42] VITALS: BP 132/66
== END 2017-06-26 16:20 | disposition home or self-care (01) | DRG 194 ==
LOC: MED/SURG 11:22
PROVIDERS: ADMIT Internal Medicine; ATTEND Internal Medicine
DX: J18.0 Bronchopneumonia, unspecified organism (principal); J20.8 Acute bronchitis due to other specified organisms; J44.0 Chronic obstructive pulmonary disease with (acute) lower respiratory infection; R06.02 Shortness of breath; I10 Essential (primary) hypertension
CPT/HCPCS: 36415; 71010; 71020; 73030; 80053; 85025; 87040; 87070; 87205; 93005; 94640; 94760; A4222; Q0177; J0360; J0713; J1956; J2930; J3490; J7620; J7626

== ENCOUNTER 2017-08-28 20:45 | Observation (INO) | payer OTHER, MEDICAID ==
[2017-08-28] MEDS ORDERED: SALINE 3% 15 ML NEB TX ONE (21:08)
[2017-08-28] MEDS ORDERED: DUONEB 0.5 MG/3 MG ONE (21:08)
[2017-08-28] MEDS ORDERED: SALINE 3% 15 ML NEB TX NEB ONE (21:13)
[2017-08-28] MEDS ORDERED: DUONEB 0.5 MG/3 MG NEB ONE (21:13)
[2017-08-28] MEDS ORDERED: SOLU-Medrol 125 MG VIAL IVP ONE (21:24)
--- NOTE | 2017-08-28 21:26 | DR.GENAD ---
HPI - PCP Primary Care Physician: BRIEN - Complaint/Symptoms Chief Complaint Doctors Comments: Patient presents with complaint of dyspnea of one days duration. She reports that she was hospitalized two weeks ago for pneumonia. Chief Complaint:: SHORT OF BREATH, WAS IN [facility] FOR PNEUMONIA. WEARS HOME O2, NON PRODUCTIVE COUGH - Source History Provided: Patient, Significant Other - Mode of Arrival Mode of Arrival: Ambulatory - Timing Onset of Chief Complaint: 08/28/17 PMH - PMH Past Medical History: Yes Past Medical History: COPD, Hypertension Past Surgical History: Yes Surgical History: Cholecystectomy, Hysterectomy - Family History History of Family Medical Conditions: Yes Family Medical History: Cancer, Hypertension - Social History Type of Tobacco Use: Cigarettes Alcohol Use: None Do you use any recreational Drugs:: No Lives With: Spouse Lives Where: Home - infectious screening Have you traveled outside the country in the last 6 months?: No Isolation: Standard ROS - Review of Systems Eyes: No Symptoms Reported ENTM: No Symptoms Reported Respiratoy: No Symptoms Reported Cardiovascular: No Symptoms Reported Gastrointestinal/Abdominal: Abdominal Pain Genitourinary: No Symptoms Reported Neurological: No Symptoms Reported Musculoskeletal: No Symptoms Reported Integumentary: No Symptoms Reported Hematologic/Lymphatic: No Symptoms Reported Endocrine: No Symptoms Reported Psychiatric: No Symptoms Reported All Other Systems: Reviewed and Negative PE - Vital Signs Vitals: Temperature 100.1 F Pulse Rate [Right] 88 Pulse Rate 89 Respiratory Rate 22 Blood Pressure [Right Arm] 160/71 Blood Pressure [Left Arm] 177/68 Blood Pressure [Left Radial 150/80 Artery] Blood Pressure 172/80 O2 Sat by Pulse Oximetry 98 - General General Appearance: Alert, In No Apparent Distress - Head Head Exam: Normal Inspection, Atraumatic - Eyes Eye exam: Normal Appearance, PERRL, EOMI - ENT ENT Exam: Normal Exam External Ear Exam: Normal External Inspection TM/Canal Exam: Bilateral Normal Nose Exam: Normal Nose Exam Mouth Exam: Normal Inspection Throat Exam: Normal Inspection - Neck Neck Exam: Normal Inspection, Full ROM - Chest Chest Inspection: Normal Inspection - Respiratory Respiratory Exam: Normal Lung Sounds Bilat Respiratory Exam: Bilateral Clear to Auscultation - Cardiovascular Cardiovascular Exam: Regular Rate, Normal Rhythm - Abdominal Exam Abdominal Exam: Normal Inspection Abdominal Tenderness: Diffuse - Extremities Extremities Exam: Normal Inspection, Full ROM - Back Back Exam: Normal Inspection - Neurologic Neurological Exam: Alert, Oriented X3, CN II-XII Intact - Psychiatric Psychiatric Exam: Normal Affect - Skin Skin Exam: Warm, Dry Course - Treatment Treatment: Renal function too low for CTA, will admit for V/Q scan - Consultation Called: 23:50 (Dr Cordon agreed to admit for further evaluation and treatment) - Education/Counseling Education/Counseling: Patient Educated On: Treatment, Diagnosis, Needs for Follow Up ROR - Labs Reviewed Laboratory Results Reviewed?: Yes (D Dimer [id number]) Result Diagrams: 08/28/17 21:15 08/28/17 21:15 Laboratory: 08/28/17 21:50 Sputum - Expectorated Sputum - Final WBC 8.2 X10^3/uL (3.6-10.0) 08/28/17 21:15 RBC 3.82 X10^6/uL (3.5-5.4) 08/28/17 21:15 Hgb 10.3 g/dL (12.0-16.0) L 08/28/17 21:15 Hct 30.6 % (36.0-47.0) L 08/28/17 21:15 MCV 79.9 fL (80.0-100.0) L 08/28/17 21:15 MCH 27.0 pg (27.0-34.0) 08/28/17 21:15 MCHC 33.8 g/dL (33.0-35.0) 08/28/17 21:15 RDW 18.6 % (11.6-16.5) H 08/28/17 21:15 Plt Count 242 X10^3/uL (150.0-450.0) 08/28/17 21:15 MPV 8.8 fL (7.4-11.0) 08/28/17 21:15 Neut % 65.3 % (42.0-75.0) 08/28/17 21:15 Lymph % 22.1 % (21.0-51.0) 08/28/17 21:15 [place] % 11.2 % (0.0-13.0) 08/28/17 21:15 Eos % 0.3 % (0.9-2.9) L 08/28/17 21:15 Baso % 1.1 % (0.2-1.0) H 08/28/17 21:15 Neut # 5.3 x10^3/uL (2.2-4.8) H 08/28/17 21:15 Lymph # 1.8 X10^3/uL (1.3-2.9) 08/28/17 21:15 [place] # 0.9 x10^3/uL (0.3-0.8) H 08/28/17 21:15 Eos # 0.0 x10^3/uL (0.0-0.2) 08/28/17 21:15 Baso # 0.1 X10^3/uL (0.0-0.1) 08/28/17 21:15 Absolute Nucleated RBC 0.1 /100WBC 08/28/17 21:15 D-Dimer 1790 ng/mL (0-400) H* 08/28/17 21:15 Sodium 141 mmol/L (136-145) 08/28/17 21:15 Corrected Sodium TNP 08/28/17 21:15 Potassium 4.1 mmol/L (3.5-5.1) 08/28/17 21:15 Chloride 106 mmol/L (98-107) 08/28/17 21:15 Carbon Dioxide 22.6 mmol/L (21-32) 08/28/17 21:15 BUN 17 mg/dL (7-18) 08/28/17 21:15 Creatinine 1.79 mg/dL (0.55-1.02) H 08/28/17 21:15 Est GFR (MDRD) Af Amer 36 (>60) L 08/28/17 21:15 Est GFR (MDRD) Non-Af 30 (>60) L 08/28/17 21:15 Glucose 82 mg/dL (65-99) 08/28/17 21:15 Calcium 8.6 mg/dL (8.5-10.1) 08/28/17 21:15 Corrected Calcium 9.4 mg/dL (8.5-10.1) 08/28/17 21:15 Total Bilirubin 0.10 mg/dL (0.2-1.0) L 08/28/17 21:15 AST 20 Units/L (15-37) 08/28/17 21:15 ALT 17 Units/L (12-78) 08/28/17 21:15 Alkaline Phosphatase 76 Units/L (46-116) 08/28/17 21:15 C-Reactive Protein 45.30 mg/L (0-3.0) H 08/28/17 21:15 Total Protein 7.2 g/dL (6.4-8.2) 08/28/17 21:15 Albumin 3.0 g/dL (3.4-5.0) L 08/28/17 21:15 Globulin 4.2 g/dL (2.5-4.5) 08/28/17 21:15 Albumin/Globulin Ratio 0.7 Ratio (1.1-2.1) L 08/28/17 21:15 - XRAY XRAY Interpreted by: Radiologist (Chest:The cardiac silhouette is unremarkable. The lungs are clear without focal infiltrate or effusion. The bony thorax is unremarkable. Flate and upright evaluation of the abdomen demonstrates a nonspecific/nonobstructive bowel gas pattern with air and stool to the level of the recutm. No obvious free air. No pathological soft tissue mass or calcification can be observed. The bony structures are grossly intact. Surgical clips in the right uper quadrant. Partially visualized bilateral hip arthroplasties. Impression: No acute cardiopulmonary disease. No evidence for acute abdominal pathology identified.) - Diagnosis Discharge Problem: D-dimer, elevated Constipation Qualifiers: Constipation type: slow transit constipation Qualified Code(s): K59.01 - Slow transit constipation Dyspnea Qualifiers: Dyspnea type: shortness of breath Qualified Code(s): R06.02 - Shortness of breath; R06.00 - Dyspnea, unspecified; R06.01 - Orthopnea - Discharge Plan Condition: Stable - Follow ups/Referrals Follow ups/Referrals: Arsh Fuentes [Primary Care Provider] - 3 days - Instructions
[2017-08-28] MEDS ORDERED: SOLU-Medrol 125 MG VIAL ONE (21:28)
[2017-08-28 21:31] LABS: BASOPHILS # (AUTO) 0.1 X10^3/uL (0.0-0.1); BASOPHILS % (AUTO) 1.1 % (0.2-1.0); EOSINOPHILS % (AUTO) 0.3 % (0.9-2.9); HEMATOCRIT 30.6 % (36.0-47.0); HEMOGLOBIN 10.3 g/dL (12.0-16.0); LYMPHOCYTES # (AUTO) 1.8 X10^3/uL (1.3-2.9); LYMPHOCYTES % (AUTO) 22.1 % (21.0-51.0); MEAN CORPUSCULAR HGB CONC 33.8 g/dL (33.0-35.0); MEAN CORPUSCULAR VOLUME 79.9 fL (80.0-100.0); MEAN PLATELET VOLUME 8.8 fL (7.4-11.0); MONOCYTES # (AUTO) 0.9 x10^3/uL (0.3-0.8); MONOCYTES % (AUTO) 11.2 % (0.0-13.0); NEUTROPHILS # (AUTO) 5.3 x10^3/uL (2.2-4.8); NEUTROPHILS % (AUTO) 65.3 % (42.0-75.0); PLATELET COUNT 242 X10^3/uL (150.0-450.0); RED BLOOD COUNT 3.82 X10^6/uL (3.5-5.4); RED CELL DISTRIBUTION WIDTH 18.6 % (11.6-16.5); WHITE BLOOD COUNT 8.2 X10^3/uL (3.6-10.0)
[2017-08-28 21:39] LABS: BLOOD UREA NITROGEN 17 mg/dL (7-18); CALCIUM 8.6 mg/dL (8.5-10.1); CARBON DIOXIDE 22.6 mmol/L (21-32); CHLORIDE 106 mmol/L (98-107); CREATININE 1.79 mg/dL (0.55-1.02); SODIUM 141 mmol/L (136-145); eGFR BLACK RACES 36 (>60); eGFR NON BLACK RACES 30 (>60)
[2017-08-28 21:51] LABS: ALANINE AMINOTRANSFERASE 17 Units/L (12-78); ALKALINE PHOSPHATASE 76 Units/L (46-116); ASPARTATE AMINO TRANSFERASE 20 Units/L (15-37); COR CA(FOR HYPOALB) 9.4 mg/dL (8.5-10.1); TOTAL PROTEIN 7.2 g/dL (6.4-8.2)
--- NOTE | 2017-08-28 22:39 | RAD ---
HISTORY: Shortness of breath. Study: Acute abdominal series Comparison: None. Findings: The trachea is midline. The cardiac silhouette is unremarkable. The lungs are clear without focal i nfiltrate or effusion. The bony thorax is unremarkable. Flat plate and upright evaluation of the abdomen demonstrates a nonspecific/nonobstructive bowel gas pattern with air and stool to the level of the rectum. No obvious free air. No pathological soft tis joesph mass or calcification can be observed. The bony structures are grossly intact. Surgical clips in the right upper quadrant. Partially visualized bilateral hip arthroplasties. IMPRESSION: 1. No acute cardiopulmonary disease. 2. No evidence for acute abdominal pathology identified. Reported By:
[2017-08-29] MEDS: NS 1000 ML 1,000 ML IV SCH ×3 (01:39→20:32)
[2017-08-29 02:59] VITALS: BMI 25.4
[2017-08-29 04:35] LABS: BASOPHILS % (AUTO) 0.2 % (0.2-1.0); HEMATOCRIT 29.5 % (36.0-47.0); HEMOGLOBIN 9.8 g/dL (12.0-16.0); LYMPHOCYTES # (AUTO) 0.5 X10^3/uL (1.3-2.9); LYMPHOCYTES % (AUTO) 7.1 % (21.0-51.0); MEAN CORPUSCULAR HEMOGLOBIN 26.6 pg (27.0-34.0); MEAN CORPUSCULAR HGB CONC 33.2 g/dL (33.0-35.0); MEAN CORPUSCULAR VOLUME 80.3 fL (80.0-100.0); MEAN PLATELET VOLUME 9.2 fL (7.4-11.0); MONOCYTES # (AUTO) 0.1 x10^3/uL (0.3-0.8); MONOCYTES % (AUTO) 1.4 % (0.0-13.0); NEUTROPHILS # (AUTO) 6.5 x10^3/uL (2.2-4.8); NEUTROPHILS % (AUTO) 91.3 % (42.0-75.0); PLATELET COUNT 229 X10^3/uL (150.0-450.0); RED BLOOD COUNT 3.67 X10^6/uL (3.5-5.4); RED CELL DISTRIBUTION WIDTH 18.1 % (11.6-16.5); WHITE BLOOD COUNT 7.1 X10^3/uL (3.6-10.0)
[2017-08-29 05:00] LABS: ALBUMIN 2.9 g/dL (3.4-5.0); CALCIUM 7.8 mg/dL (8.5-10.1); CARBON DIOXIDE 18.2 mmol/L (21-32); COR CA(FOR HYPOALB) 8.7 mg/dL (8.5-10.1); CREATININE 1.93 mg/dL (0.55-1.02)
[2017-08-29 06:08] LABS: BAND NEUTROPHILS % 0 % (0-10)
[2017-08-29 06:09] LABS: PLATELET MORPHOLOGY COMMENT NORMAL (NORMAL)
[2017-08-29 07:22] LABS: BILIRUBIN,URINE NEGATIVE (NEGATIVE); BLOOD/HEMOGLOBIN,URINE NEGATIVE (NEGATIVE); GLUCOSE, URINE 3+ (NEGATIVE); KETONES,URINE NEGATIVE (NEGATIVE); LEUKOCYTE ESTERASE ,URINE NEGATIVE (NEGATIVE); NITRITES,URINE NEGATIVE (NEGATIVE); PROTEIN,URINE 2+ (NEGATIVE); UROBILINOGEN,URINE NORMAL (NORMAL)
[2017-08-29 07:59] LABS: APPEARANCE,URINE CLEAR (CLEAR); COLOR,URINE YELLOW (YELLOW)
[2017-08-29 08:04] LABS: AMORPHOUS SEDIMENT,UR TRACE /HPF (NEGATIVE); BACTERIA,URINE TRACE /HPF (NEGATIVE); MUCUS,URINE MODERATE /HPF (NEGATIVE); RBC,URINE RARE /HPF (NEGATIVE); SQUAMOUS EPITHELIAL CELL,UR FEW /HPF (NEGATIVE)
[2017-08-29] MEDS: DUONEB 0.5 MG/3 MG NEB SCH ×4 (08:58→20:44)
[2017-08-29] MEDS ORDERED: CITALOPRAM HYDROBROMIDE 40 MG PO SCH (11:45)
[2017-08-29] MEDS ORDERED: PATIENT'S HOME MEDICATION (Aspirin [Aspirin] 81 MG) PO SCH (11:45)
[2017-08-29] MEDS ORDERED: HYDRALAZINE HCL PO SCH (11:45)
[2017-08-29] MEDS: PROTONIX TAB 40 MG PO SCH ×2 (12:52→20:30)
[2017-08-29] MEDS: ZESTRIL TAB 40 MG PO SCH (12:52)
[2017-08-29] MEDS: CATAPRES TAB 0.1 MG PO SCH ×2 (12:52→20:30)
[2017-08-29] MEDS: LINACLOTIDE 290 MCG PO SCH (12:52)
[2017-08-29] MEDS: ZyrTEC TAB 10 MG PO SCH (12:53)
[2017-08-29] MEDS: NORVASC TAB 5 MG PO SCH (12:53)
[2017-08-29] MEDS: ZANTAC PO SCH ×2 (12:53→20:30)
[2017-08-29] MEDS: PLAVIX PO SCH (12:53)
[2017-08-29] MEDS: CELEXA PO SCH (12:53)
[2017-08-29] MEDS: ASPIRIN 81 MG CHEWTAB PO SCH (12:53)
[2017-08-29] MEDS: SYNTHROID 112 mcg TAB PO SCH (12:53)
[2017-08-29] MEDS ORDERED: ROCEPHIN VIAL 1 GM 1 GM in NS 50 ML IV + SPIKE MINIBAG* 50 ML IV SCH (15:45)
[2017-08-29] MEDS: ROCEPHIN 1 GM IV PREMIX 1 GM/50 ML IV.SOLN. IV SCH (16:05)
[2017-08-29] MEDS: LIPITOR TAB 40 MG PO SCH (20:30)
[2017-08-29] MEDS: APRESOLINE TAB 25 MG PO SCH (20:30)
[2017-08-29] MEDS: NEURONTIN CAP 300 MG PO SCH (20:30)
[2017-08-29] MEDS: SOLU-Medrol 125 MG VIAL IVP SCH (21:14)
[2017-08-30 04:27] LABS: BASOPHILS % (AUTO) 0.1 % (0.2-1.0); HEMATOCRIT 27.9 % (36.0-47.0); HEMOGLOBIN 9.4 g/dL (12.0-16.0); LYMPHOCYTES # (AUTO) 0.6 X10^3/uL (1.3-2.9); LYMPHOCYTES % (AUTO) 8.7 % (21.0-51.0); MEAN CORPUSCULAR HEMOGLOBIN 26.9 pg (27.0-34.0); MEAN CORPUSCULAR HGB CONC 33.6 g/dL (33.0-35.0); MEAN PLATELET VOLUME 9.1 fL (7.4-11.0); MONOCYTES # (AUTO) 0.1 x10^3/uL (0.3-0.8); MONOCYTES % (AUTO) 1.4 % (0.0-13.0); NEUTROPHILS # (AUTO) 5.8 x10^3/uL (2.2-4.8); NEUTROPHILS % (AUTO) 89.8 % (42.0-75.0); PLATELET COUNT 212 X10^3/uL (150.0-450.0); RED BLOOD COUNT 3.49 X10^6/uL (3.5-5.4); RED CELL DISTRIBUTION WIDTH 18.6 % (11.6-16.5); WHITE BLOOD COUNT 6.5 X10^3/uL (3.6-10.0)
[2017-08-30 04:29] LABS: CALCIUM 8.1 mg/dL (8.5-10.1); CARBON DIOXIDE 21.5 mmol/L (21-32); CREATININE 1.31 mg/dL (0.55-1.02)
[2017-08-30] MEDS: NS 1000 ML 1,000 ML IV SCH ×4 (04:48→18:14)
[2017-08-30 04:59] LABS: ALBUMIN 2.6 g/dL (3.4-5.0); COR CA(FOR HYPOALB) 9.2 mg/dL (8.5-10.1); TOTAL PROTEIN 6.6 g/dL (6.4-8.2)
[2017-08-30] MEDS: SOLU-Medrol 125 MG VIAL IVP SCH ×3 (05:01→21:44)
[2017-08-30] MEDS: DUONEB 0.5 MG/3 MG NEB SCH ×4 (09:47→20:47)
[2017-08-30] MEDS: NORVASC TAB 5 MG PO SCH (10:32)
[2017-08-30] MEDS: ROCEPHIN 1 GM IV PREMIX 1 GM/50 ML IV.SOLN. IV SCH (10:33)
[2017-08-30] MEDS: ZESTRIL TAB 40 MG PO SCH (10:33)
[2017-08-30] MEDS: CATAPRES TAB 0.1 MG PO SCH ×2 (10:33→21:45)
[2017-08-30] MEDS: APRESOLINE TAB 25 MG PO SCH ×2 (10:33→21:45)
[2017-08-30] MEDS: LINACLOTIDE 290 MCG PO SCH (10:34)
[2017-08-30] MEDS: MAXZIDE 37.5/25 MG PO SCH (13:04)
[2017-08-30] MEDS: PROTONIX TAB 40 MG PO SCH ×2 (13:04→21:46)
[2017-08-30] MEDS: SYNTHROID 112 mcg TAB PO SCH (13:05)
[2017-08-30] MEDS: ASPIRIN 81 MG CHEWTAB PO SCH (13:05)
[2017-08-30] MEDS: PLAVIX PO SCH (13:05)
[2017-08-30] MEDS: ZANTAC PO SCH ×2 (13:05→21:45)
[2017-08-30] MEDS: ZyrTEC TAB 10 MG PO SCH (13:05)
[2017-08-30] MEDS: CELEXA PO SCH (13:05)
--- NOTE | 2017-08-30 17:41 | NM ---
VQ SCAN CLINICAL INDICATION: Elevated D-dimer and shortness of breath PROCEDURE: Following the inhalation of approximately 30.5 mCi Tc-99m DTPA aerosol, planar lung images were perfo rmed in multiple projections. Subsequently, following the intravenous administration of 5.5 mCi Tc-99 m MAA, planar lung images were also obtained in multiple projections. COMPARISON: None FINDINGS: Perfusion and ventilation lung images demonstrate patchy matched bilateral defects. There are no segm ental or subsegmental mismatched defects suspicious for acute pulmonary embolus. IMPRESSION: 1. Not characteristic for PE. 2. Patchy bilateral matched defects which would be consistent with airspace disease such as pneumonia . This would be consistent with patient's recent chest x-ray. In addition, it is recommended that all VQ scan probability levels be combined with the clinical prob ability score (Wells or similar) to arrive at overall probability. If the pretest probability is high , but VQ is "not characteristic for PE" (low or very low probability) then another test may still be indicated such as CTA or LE US for DVT. Reported By:
--- NOTE | 2017-08-30 17:42 | RAD ---
HISTORY: Shortness of breath Study: Single view of the chest. Comparison: 08/28/2017 Findings: The cardiomediastinal silhouette is normal. There are patchy bilateral airspace opacities. Osseous st ructures demonstrate no acute abnormality. IMPRESSION: 1. Patchy bilateral airspace opacities which may represent pneumonia in the correct clinical setting . Reported By:
[2017-08-30] MEDS: LIPITOR TAB 40 MG PO SCH (21:45)
[2017-08-30] MEDS: NEURONTIN CAP 300 MG PO SCH (21:45)
[2017-08-31] MEDS: NS 1000 ML 1,000 ML IV SCH ×3 (02:51→18:42)
[2017-08-31 04:37] LABS: BASOPHILS # (AUTO) 0.1 X10^3/uL (0.0-0.1); BASOPHILS % (AUTO) 0.8 % (0.2-1.0); EOSINOPHILS % (AUTO) 0.5 % (0.9-2.9); HEMATOCRIT 26.8 % (36.0-47.0); HEMOGLOBIN 9.1 g/dL (12.0-16.0); LYMPHOCYTES # (AUTO) 0.6 X10^3/uL (1.3-2.9); MEAN CORPUSCULAR HEMOGLOBIN 27.2 pg (27.0-34.0); MEAN CORPUSCULAR HGB CONC 33.9 g/dL (33.0-35.0); MEAN CORPUSCULAR VOLUME 80.1 fL (80.0-100.0); MEAN PLATELET VOLUME 9.1 fL (7.4-11.0); MONOCYTES # (AUTO) 0.2 x10^3/uL (0.3-0.8); MONOCYTES % (AUTO) 1.8 % (0.0-13.0); NEUTROPHILS # (AUTO) 8.6 x10^3/uL (2.2-4.8); NEUTROPHILS % (AUTO) 90.9 % (42.0-75.0); PLATELET COUNT 215 X10^3/uL (150.0-450.0); RED BLOOD COUNT 3.35 X10^6/uL (3.5-5.4); RED CELL DISTRIBUTION WIDTH 18.3 % (11.6-16.5); WHITE BLOOD COUNT 9.5 X10^3/uL (3.6-10.0)
[2017-08-31 04:52] LABS: ALBUMIN 2.6 g/dL (3.4-5.0); CALCIUM 7.7 mg/dL (8.5-10.1); CARBON DIOXIDE 17.9 mmol/L (21-32); COR CA(FOR HYPOALB) 8.8 mg/dL (8.5-10.1); CREATININE 1.28 mg/dL (0.55-1.02); TOTAL PROTEIN 6.5 g/dL (6.4-8.2)
[2017-08-31 05:08] LABS: PLATELET MORPHOLOGY COMMENT NORMAL (NORMAL)
[2017-08-31] MEDS: SOLU-Medrol 125 MG VIAL IVP SCH ×3 (06:06→21:35)
[2017-08-31] MEDS: DUONEB 0.5 MG/3 MG NEB SCH ×4 (08:51→20:44)
[2017-08-31] MEDS: ROCEPHIN 1 GM IV PREMIX 1 GM/50 ML IV.SOLN. IV SCH (09:10)
[2017-08-31] MEDS: NORVASC TAB 5 MG PO SCH (09:11)
[2017-08-31] MEDS: PROTONIX TAB 40 MG PO SCH ×2 (09:11→21:29)
[2017-08-31] MEDS: APRESOLINE TAB 25 MG PO SCH ×2 (09:11→21:29)
[2017-08-31] MEDS: ZANTAC PO SCH ×2 (09:11→21:29)
[2017-08-31] MEDS: ZESTRIL TAB 40 MG PO SCH (09:12)
[2017-08-31] MEDS: ASPIRIN 81 MG CHEWTAB PO SCH (09:12)
[2017-08-31] MEDS: CELEXA PO SCH (09:12)
[2017-08-31] MEDS: PLAVIX PO SCH (09:12)
[2017-08-31] MEDS: SYNTHROID 112 mcg TAB PO SCH (09:12)
[2017-08-31] MEDS: ZyrTEC TAB 10 MG PO SCH (09:12)
[2017-08-31] MEDS: CATAPRES TAB 0.1 MG PO SCH ×2 (09:12→21:29)
[2017-08-31] MEDS: MAXZIDE 37.5/25 MG PO SCH (09:12)
[2017-08-31] MEDS: LINACLOTIDE 290 MCG PO SCH (09:18)
[2017-08-31] MEDS: BROVANA IN SCH ×2 (12:10→20:44)
[2017-08-31] MEDS: NICOTINE PATCH TD SCH (12:59)
[2017-08-31] MEDS: LEVAQUIN PREMIX IV 500 MG 500 MG/100 ML BAG IV SCH (13:00)
[2017-08-31] MEDS: NORVASC TAB 10 MG PO SCH (13:01)
[2017-08-31] MEDS: NEURONTIN CAP 300 MG PO SCH (21:29)
[2017-08-31] MEDS: LIPITOR TAB 40 MG PO SCH (21:30)
[2017-09-01] MEDS: NS 1000 ML 1,000 ML IV SCH ×3 (01:08→17:31)
[2017-09-01 04:55] LABS: BASOPHILS % (AUTO) 0.2 % (0.2-1.0); HEMATOCRIT 26.5 % (36.0-47.0); HEMOGLOBIN 8.9 g/dL (12.0-16.0); LYMPHOCYTES # (AUTO) 1.3 X10^3/uL (1.3-2.9); LYMPHOCYTES % (AUTO) 11.5 % (21.0-51.0); MEAN CORPUSCULAR HEMOGLOBIN 26.8 pg (27.0-34.0); MEAN CORPUSCULAR HGB CONC 33.4 g/dL (33.0-35.0); MEAN CORPUSCULAR VOLUME 80.4 fL (80.0-100.0); MONOCYTES # (AUTO) 0.5 x10^3/uL (0.3-0.8); MONOCYTES % (AUTO) 4.1 % (0.0-13.0); NEUTROPHILS # (AUTO) 9.3 x10^3/uL (2.2-4.8); NEUTROPHILS % (AUTO) 84.2 % (42.0-75.0); PLATELET COUNT 214 X10^3/uL (150.0-450.0); RED CELL DISTRIBUTION WIDTH 18.7 % (11.6-16.5); WHITE BLOOD COUNT 11.1 X10^3/uL (3.6-10.0)
[2017-09-01 05:02] LABS: ALBUMIN 2.6 g/dL (3.4-5.0); CALCIUM 7.8 mg/dL (8.5-10.1); COR CA(FOR HYPOALB) 8.9 mg/dL (8.5-10.1); CREATININE 1.29 mg/dL (0.55-1.02); TOTAL PROTEIN 6.3 g/dL (6.4-8.2)
[2017-09-01] MEDS: SOLU-Medrol 125 MG VIAL IVP SCH ×3 (05:06→21:44)
[2017-09-01] MEDS: BROVANA IN SCH ×2 (08:57→20:50)
[2017-09-01] MEDS: DUONEB 0.5 MG/3 MG NEB SCH ×4 (08:57→20:50)
[2017-09-01] MEDS: ZANTAC PO SCH ×2 (09:13→20:15)
[2017-09-01] MEDS: ROCEPHIN 1 GM IV PREMIX 1 GM/50 ML IV.SOLN. IV SCH (09:13)
[2017-09-01] MEDS: CELEXA PO SCH (09:14)
[2017-09-01] MEDS: LINACLOTIDE 290 MCG PO SCH (09:14)
[2017-09-01] MEDS: NICOTINE PATCH TD SCH (09:14)
[2017-09-01] MEDS: ZESTRIL TAB 40 MG PO SCH (09:14)
[2017-09-01] MEDS: SYNTHROID 112 mcg TAB PO SCH (09:14)
[2017-09-01] MEDS: ZyrTEC TAB 10 MG PO SCH (09:14)
[2017-09-01] MEDS: PROTONIX TAB 40 MG PO SCH ×2 (09:14→20:15)
[2017-09-01] MEDS: MAXZIDE 37.5/25 MG PO SCH (09:14)
[2017-09-01] MEDS: NORVASC TAB 10 MG PO SCH (09:14)
[2017-09-01] MEDS: ASPIRIN 81 MG CHEWTAB PO SCH (09:14)
[2017-09-01] MEDS: APRESOLINE TAB 25 MG PO SCH ×2 (09:14→20:15)
[2017-09-01] MEDS: CATAPRES TAB 0.1 MG PO SCH ×2 (09:14→20:15)
[2017-09-01] MEDS: PLAVIX PO SCH (09:16)
[2017-09-01] MEDS: LEVAQUIN PREMIX IV 500 MG 500 MG/100 ML BAG IV SCH (10:41)
[2017-09-01] MEDS: NEURONTIN CAP 300 MG PO SCH (20:15)
[2017-09-01] MEDS: LIPITOR TAB 40 MG PO SCH (20:15)
[2017-09-02] MEDS: NS 1000 ML 1,000 ML IV SCH ×3 (01:01→18:40)
[2017-09-02 04:39] LABS: BASOPHILS % (AUTO) 0.1 % (0.2-1.0); HEMATOCRIT 27.2 % (36.0-47.0); HEMOGLOBIN 9.2 g/dL (12.0-16.0); LYMPHOCYTES # (AUTO) 0.8 X10^3/uL (1.3-2.9); LYMPHOCYTES % (AUTO) 7.6 % (21.0-51.0); MEAN CORPUSCULAR HEMOGLOBIN 26.7 pg (27.0-34.0); MEAN CORPUSCULAR HGB CONC 33.7 g/dL (33.0-35.0); MEAN CORPUSCULAR VOLUME 79.2 fL (80.0-100.0); MEAN PLATELET VOLUME 8.7 fL (7.4-11.0); MONOCYTES # (AUTO) 0.3 x10^3/uL (0.3-0.8); MONOCYTES % (AUTO) 2.9 % (0.0-13.0); NEUTROPHILS # (AUTO) 9.9 x10^3/uL (2.2-4.8); NEUTROPHILS % (AUTO) 89.4 % (42.0-75.0); PLATELET COUNT 217 X10^3/uL (150.0-450.0); RED BLOOD COUNT 3.43 X10^6/uL (3.5-5.4); RED CELL DISTRIBUTION WIDTH 18.3 % (11.6-16.5)
[2017-09-02 04:58] LABS: ALBUMIN 2.5 g/dL (3.4-5.0); CALCIUM 7.7 mg/dL (8.5-10.1); CARBON DIOXIDE 18.8 mmol/L (21-32); COR CA(FOR HYPOALB) 8.9 mg/dL (8.5-10.1); CREATININE 1.24 mg/dL (0.55-1.02); TOTAL PROTEIN 6.1 g/dL (6.4-8.2)
[2017-09-02 05:13] LABS: ERYTHROCYTE SEDIMENTATION RATE 26 MM/HOUR (0-20)
[2017-09-02] MEDS ORDERED: MILK OF MAGNESIA PO PRN (08:21)
[2017-09-02] MEDS ORDERED: COLACE CAP 100 MG PO PRN (08:21)
[2017-09-02] MEDS: ROCEPHIN 1 GM IV PREMIX 1 GM/50 ML IV.SOLN. IV SCH (09:37)
[2017-09-02] MEDS: APRESOLINE TAB 25 MG PO SCH ×2 (09:39→20:43)
[2017-09-02] MEDS: PLAVIX PO SCH (09:39)
[2017-09-02] MEDS: ASPIRIN 81 MG CHEWTAB PO SCH (09:39)
[2017-09-02] MEDS: SYNTHROID 112 mcg TAB PO SCH (09:39)
[2017-09-02] MEDS: NORVASC TAB 10 MG PO SCH (09:39)
[2017-09-02] MEDS: CATAPRES TAB 0.1 MG PO SCH ×2 (09:40→20:43)
[2017-09-02] MEDS: MAXZIDE 37.5/25 MG PO SCH (09:40)
[2017-09-02] MEDS: ZESTRIL TAB 40 MG PO SCH (09:40)
[2017-09-02] MEDS: ZyrTEC TAB 10 MG PO SCH (09:40)
[2017-09-02] MEDS: ZANTAC PO SCH ×2 (09:40→20:43)
[2017-09-02] MEDS: PROTONIX TAB 40 MG PO SCH ×2 (09:40→20:43)
[2017-09-02] MEDS: CELEXA PO SCH (09:40)
[2017-09-02] MEDS: LINACLOTIDE 290 MCG PO SCH ×2 (09:40→09:44)
[2017-09-02] MEDS: NICOTINE PATCH TD SCH (09:44)
[2017-09-02] MEDS: BROVANA IN SCH ×2 (09:50→21:07)
[2017-09-02] MEDS: DUONEB 0.5 MG/3 MG NEB SCH ×4 (09:50→21:07)
[2017-09-02] MEDS: LEVAQUIN PREMIX IV 500 MG 500 MG/100 ML BAG IV SCH (10:44)
--- NOTE | 2017-09-02 18:46 | CT ---
HISTORY: Pneumonia, cough Study: CT chest without contrast Comparison: CT 12/02/2015 Technique: Multiple axial images of the chest were obtained from the thoracic inlet to the upper abdo men without IV contrast. Dose reduction techniques including Automated Exposure Control (AEC) and ad justment of mA and kV were utilized. Findings: Please note evaluation is limited without IV contrast. Vessel patency not assessed. Normal-sized hear t. Calcified plaque is seen in the coronary arteries and aortic arch. The aorta appears normal in cou rse and caliber. The lungs are clear without effusion, consolidation, or pneumothorax. Airways are pa tent. Mild subsegmental atelectasis is present at the lung bases. No evidence of pneumonia. The soft tissues and osseous structures appear intact. There is severe atrophy of the left kidney. Th e gallbladder is removed. IMPRESSION: 1. Clear lungs. 2. Atherosclerotic disease of the coronary arteries and aorta. 3. Left renal atrophy. Reported By:
[2017-09-02] MEDS: NEURONTIN CAP 300 MG PO SCH (20:43)
[2017-09-02] MEDS: LIPITOR TAB 40 MG PO SCH (20:43)
[2017-09-03] MEDS: NS 1000 ML 1,000 ML IV SCH (02:29)
[2017-09-03 05:34] LABS: BASOPHILS % (AUTO) 0.2 % (0.2-1.0); EOSINOPHILS % (AUTO) 0.2 % (0.9-2.9); HEMATOCRIT 25.1 % (36.0-47.0); HEMOGLOBIN 8.7 g/dL (12.0-16.0); LYMPHOCYTES # (AUTO) 1.9 X10^3/uL (1.3-2.9); MEAN CORPUSCULAR HEMOGLOBIN 27.3 pg (27.0-34.0); MEAN CORPUSCULAR HGB CONC 34.6 g/dL (33.0-35.0); MEAN CORPUSCULAR VOLUME 78.9 fL (80.0-100.0); MEAN PLATELET VOLUME 8.8 fL (7.4-11.0); MONOCYTES # (AUTO) 0.6 x10^3/uL (0.3-0.8); MONOCYTES % (AUTO) 6.6 % (0.0-13.0); NEUTROPHILS # (AUTO) 6.6 x10^3/uL (2.2-4.8); PLATELET COUNT 213 X10^3/uL (150.0-450.0); RED BLOOD COUNT 3.18 X10^6/uL (3.5-5.4); RED CELL DISTRIBUTION WIDTH 18.5 % (11.6-16.5); WHITE BLOOD COUNT 9.1 X10^3/uL (3.6-10.0)
[2017-09-03 05:35] LABS: ALANINE AMINOTRANSFERASE 14 Units/L (12-78); ALBUMIN 2.2 g/dL (3.4-5.0); ALKALINE PHOSPHATASE 50 Units/L (46-116); ASPARTATE AMINO TRANSFERASE 12 Units/L (15-37); BLOOD UREA NITROGEN 15 mg/dL (7-18); CALCIUM 7.3 mg/dL (8.5-10.1); CARBON DIOXIDE 18.5 mmol/L (21-32); CHLORIDE 113 mmol/L (98-107); COR CA(FOR HYPOALB) 8.7 mg/dL (8.5-10.1); CREATININE 1.31 mg/dL (0.55-1.02); SODIUM 144 mmol/L (136-145); TOTAL PROTEIN 5.4 g/dL (6.4-8.2); eGFR BLACK RACES 51 (>60); eGFR NON BLACK RACES 42 (>60)
[2017-09-03 08:20] VITALS: BP 180/78
[2017-09-03] MEDS: ROCEPHIN 1 GM IV PREMIX 1 GM/50 ML IV.SOLN. IV SCH (09:04)
[2017-09-03] MEDS: SYNTHROID 112 mcg TAB PO SCH (09:05)
[2017-09-03] MEDS: ZANTAC PO SCH (09:05)
[2017-09-03] MEDS: CATAPRES TAB 0.1 MG PO SCH (09:05)
[2017-09-03] MEDS: CELEXA PO SCH (09:05)
[2017-09-03] MEDS: PROTONIX TAB 40 MG PO SCH (09:06)
[2017-09-03] MEDS: NORVASC TAB 10 MG PO SCH (09:06)
[2017-09-03] MEDS: MAXZIDE 37.5/25 MG PO SCH (09:07)
[2017-09-03] MEDS: ZyrTEC TAB 10 MG PO SCH (09:07)
[2017-09-03] MEDS: ASPIRIN 81 MG CHEWTAB PO SCH (09:07)
[2017-09-03] MEDS: NICOTINE PATCH TD SCH (09:07)
[2017-09-03] MEDS: APRESOLINE TAB 25 MG PO SCH (09:07)
[2017-09-03] MEDS: LINACLOTIDE 290 MCG PO SCH (09:08)
[2017-09-03] MEDS: LEVAQUIN PREMIX IV 500 MG 500 MG/100 ML BAG IV SCH (09:08)
[2017-09-03] MEDS: ZESTRIL TAB 40 MG PO SCH (09:08)
[2017-09-03] MEDS: PLAVIX PO SCH (09:10)
[2017-09-03] MEDS: BROVANA IN SCH (09:50)
[2017-09-03] MEDS: DUONEB 0.5 MG/3 MG NEB SCH (09:50)
== END 2017-09-03 11:00 | disposition home health service (06) | DRG 204 ==
LOC: ER 20:45 → MED/SURG 23:59
PROVIDERS: ADMIT Internal Medicine; ATTEND Internal Medicine
DX: R06.03 Acute respiratory distress (principal); J18.8 Other pneumonia, unspecified organism; J44.1 Chronic obstructive pulmonary disease with (acute) exacerbation; R79.1 Abnormal coagulation profile; R06.02 Shortness of breath; Z99.81 Dependence on supplemental oxygen; I10 Essential (primary) hypertension; R94.4 Abnormal results of kidney function studies; K59.01 Slow transit constipation; R06.01 Orthopnea; E03.8 Other specified hypothyroidism; J20.8 Acute bronchitis due to other specified organisms
CPT/HCPCS: 36415; 71010; 71250; 74022; 78582; 80053; 81001; 85025; 85378; 85652; 86140; 87070; 87205; 94640; 94760; 96365; 96374; 99218; 99284; A4216; A4222; G0378; J0696; J1956; J2930; J7620

== ENCOUNTER 2019-02-08 12:00 | Inpatient (IN) ==
[2019-02-08] MEDS ORDERED: ZOSYN VIAL 4.5 GRAMS 4.5 G in NS 100 ML IV + SPIKE MINIBAG* 100 ML IV SCH (14:33)
[2019-02-08] MEDS ORDERED: LEVAQUIN PREMIX IV 750 MG 750 MG/150 ML BAG IV SCH (14:33)
[2019-02-08] MEDS ORDERED: TUSSIONEX PENNKINETIC SUSP PO PRN (14:33)
[2019-02-08] MEDS ORDERED: NS 1/2 1000 ML IV 1,000 ML ONE (14:57)
[2019-02-08] MEDS ORDERED: NICOTINE PATCH ONE (14:58)
[2019-02-08 15:02] LABS: BASOPHILS # (AUTO) 0.1 X10^3/uL (0.0-0.1); BASOPHILS % (AUTO) 1.2 % (0.2-1.0); EOSINOPHILS % (AUTO) 0.7 % (0.9-2.9); HEMATOCRIT 32.7 % (36.0-47.0); HEMOGLOBIN 10.9 g/dL (12.0-16.0); LYMPHOCYTES # (AUTO) 2.5 X10^3/uL (1.3-2.9); LYMPHOCYTES % (AUTO) 40.3 % (21.0-51.0); MEAN CORPUSCULAR HEMOGLOBIN 26.8 pg (27.0-34.0); MEAN CORPUSCULAR HGB CONC 33.2 g/dL (33.0-35.0); MEAN CORPUSCULAR VOLUME 80.8 fL (80.0-100.0); MEAN PLATELET VOLUME 8.2 fL (7.4-11.0); MONOCYTES # (AUTO) 0.4 x10^3/uL (0.3-0.8); MONOCYTES % (AUTO) 6.3 % (0.0-13.0); NEUTROPHILS # (AUTO) 3.2 x10^3/uL (2.2-4.8); NEUTROPHILS % (AUTO) 51.5 % (42.0-75.0); PLATELET COUNT 246 X10^3/uL (150.0-450.0); RED BLOOD COUNT 4.05 X10^6/uL (3.5-5.4); RED CELL DISTRIBUTION WIDTH 18.1 % (11.6-16.5); WHITE BLOOD COUNT 6.3 X10^3/uL (3.6-10.0)
[2019-02-08 15:16] LABS: ALANINE AMINOTRANSFERASE 13 Units/L (12-78); ALBUMIN 3.5 g/dL (3.4-5.0); ALKALINE PHOSPHATASE 104 Units/L (46-116); ASPARTATE AMINO TRANSFERASE 15 Units/L (15-37); BLOOD UREA NITROGEN 25 mg/dL (7-18); CALCIUM 9.1 mg/dL (8.5-10.1); CARBON DIOXIDE 20.3 mmol/L (21-32); CHLORIDE 106 mmol/L (98-107); COR NA(FOR HYPERGLY) 141 mmol/L (136-145); CREATININE 1.93 mg/dL (0.55-1.02); SODIUM 140 mmol/L (136-145); eGFR NON BLACK RACES 27 (>60)
[2019-02-08 15:17] VITALS: BMI 23.2
[2019-02-08] MEDS: NICOTINE PATCH TD SCH (15:19)
[2019-02-08] MEDS: NS 1/2 1000 ML IV 1,000 ML IV SCH (15:19)
[2019-02-08] MEDS: DUONEB 0.5 MG/3 MG NEB SCH ×2 (16:07→20:18)
[2019-02-08] MEDS ORDERED: PREVNAR 13 IM ONE (16:30)
[2019-02-08] MEDS: CULTURELLE PRO-WELL PROBIOTIC CAP PO SCH (16:43)
[2019-02-08] MEDS: ROBITUSSIN DM PO SCH ×2 (16:43→20:45)
--- NOTE | 2019-02-08 18:31 | RAD ---
Chest PA and lateral Indication: Pneumonia Comparison: 10/12/2018 Findings: There is no pneumothorax, effusion or consolidation. Heart size is within limits. Spine DJD noted Impression: Minimal increased interstitial markings, ultimately nonspecific with bronchitis or atypical pneumonia not excluded. Otherwise, no new acute abnormality or change from the prior. Reported By:
[2019-02-08] MEDS: PULMICORT NEB TX 0.5 MG NEB SCH (20:18)
[2019-02-08] MEDS: ZOSYN VIAL 3.375 GRAMS 3.375 G in NS 100 ML IV + SPIKE MINIBAG* 100 ML IV SCH (22:55)
[2019-02-09] MEDS: NS 1/2 1000 ML IV 1,000 ML IV SCH ×3 (04:30→19:30)
[2019-02-09] MEDS: DUONEB 0.5 MG/3 MG NEB SCH ×6 (04:57→21:38)
--- NOTE | 2019-02-09 04:59 | RAD ---
Chest, 1 view Indication: Shortness of breath Comparison: 02/08/2019 Findings: Mild interstitial prominence of the lungs is similar to prior, accounting for differences in technique. No focal infiltrates or pleural effusion. The heart size is normal. Impression: No significant change from prior. Reported By:
[2019-02-09 05:10] LABS: BASOPHILS % (AUTO) 0.3 % (0.2-1.0); EOSINOPHILS % (AUTO) 0.6 % (0.9-2.9); LYMPHOCYTES # (AUTO) 2.2 X10^3/uL (1.3-2.9); LYMPHOCYTES % (AUTO) 36.9 % (21.0-51.0); MEAN CORPUSCULAR HEMOGLOBIN 26.8 pg (27.0-34.0); MEAN CORPUSCULAR HGB CONC 33.3 g/dL (33.0-35.0); MEAN CORPUSCULAR VOLUME 80.4 fL (80.0-100.0); MEAN PLATELET VOLUME 9.1 fL (7.4-11.0); MONOCYTES # (AUTO) 0.6 x10^3/uL (0.3-0.8); MONOCYTES % (AUTO) 9.6 % (0.0-13.0); NEUTROPHILS # (AUTO) 3.1 x10^3/uL (2.2-4.8); NEUTROPHILS % (AUTO) 52.6 % (42.0-75.0); PLATELET COUNT 225 X10^3/uL (150.0-450.0); RED BLOOD COUNT 3.73 X10^6/uL (3.5-5.4); RED CELL DISTRIBUTION WIDTH 18.4 % (11.6-16.5); WHITE BLOOD COUNT 5.9 X10^3/uL (3.6-10.0)
[2019-02-09 05:22] LABS: ALANINE AMINOTRANSFERASE 11 Units/L (12-78); ALKALINE PHOSPHATASE 87 Units/L (46-116); ASPARTATE AMINO TRANSFERASE 14 Units/L (15-37); BLOOD UREA NITROGEN 22 mg/dL (7-18); CALCIUM 8.5 mg/dL (8.5-10.1); CARBON DIOXIDE 19.6 mmol/L (21-32); CHLORIDE 107 mmol/L (98-107); COR CA(FOR HYPOALB) 9.3 mg/dL (8.5-10.1); CREATININE 1.73 mg/dL (0.55-1.02); SODIUM 140 mmol/L (136-145); TOTAL PROTEIN 7.1 g/dL (6.4-8.2); eGFR NON BLACK RACES 31 (>60)
[2019-02-09] MEDS ORDERED: NS 1/2 1000 ML IV 1,000 ML ONE ×2 (05:30→18:00)
[2019-02-09] MEDS: ZOSYN VIAL 3.375 GRAMS 3.375 G in NS 100 ML IV + SPIKE MINIBAG* 100 ML IV SCH ×3 (05:42→21:29)
[2019-02-09] MEDS: NICOTINE PATCH TD SCH (09:13)
[2019-02-09] MEDS: CULTURELLE PRO-WELL PROBIOTIC CAP PO SCH (09:13)
[2019-02-09] MEDS: ROBITUSSIN DM PO SCH ×4 (09:14→20:45)
[2019-02-09] MEDS: PULMICORT NEB TX 0.5 MG NEB SCH ×2 (09:19→21:00)
[2019-02-09] MEDS ORDERED: PATIENT'S HOME MEDICATION (Fluticasone Propion-Salmeterol [Fluticasone Propion-Salmeterol] IN SCH (10:30)
[2019-02-09] MEDS: SYNTHROID 112 mcg TAB PO SCH (12:08)
[2019-02-09] MEDS: APRESOLINE TAB 25 MG PO SCH ×2 (12:08→20:45)
[2019-02-09] MEDS: COZAAR PO SCH (12:09)
[2019-02-09] MEDS: CELEXA PO SCH (12:09)
[2019-02-09] MEDS: CATAPRES TAB 0.1 MG PO SCH ×2 (12:09→20:45)
[2019-02-09] MEDS: PLAVIX PO SCH (12:10)
[2019-02-09] MEDS: PROTONIX TAB 40 MG PO SCH ×2 (12:10→20:45)
[2019-02-09] MEDS ORDERED: PHARMACY CONSULT - DOSE _____ XX SCH (16:00)
--- NOTE | 2019-02-09 21:47 | PCM.PROG ---
Progress Note - Progress Note for Day of Date of Exam: 02/09/19 - Subjective Subjective: WAS ADMITTED FOR PNEUMONIA AND COPD EXACERBATION. TODAY, SHE IS ALERT AND ORIENTED, SITTING UP IN BED ON MORNING ROUNDS. SHE IS NOTED WITH COMPLAINTS OF SHORTNESS OF BREATH AND A PRODUCTIVE COUGH. ON EXAMINATION, HEART IS REGULAR IN RATE AND RHYTHM. BILATERAL LUNGS ARE NOTED WITH SCATTERED WHEEZING. ABDOMEN IS ROUND, SOFT, AND NON-TENDER WITH NORMAL BOWEL SOUNDS NOTED IN ALL QUADRANTS. HER VITALS THIS MORNING ARE 98.1-69-20-100%-179/72. LABS WERE OBTAINED. ABNORMAL LAB VALUES INCLUDE THE FOLLOWING: HGB 10.0, HCT 30.0, CARBON DIOXIDE 19.6, BUN 22, CREATININE 1.73, AST 14, ALT 11, ALBUMIN 3.0. BLOOD AND SPUTUM CULTURES PENDING. CHEST XRAY ON ADMISSION REVEALED: Minimal increased interstitial markings, ultimately nonspecific with bronchitis or atypical pneumonia not excluded. Otherwise, no new acute abnormality or change from the prior. SHE IS CURRENTLY RECEIVING IV LEVAQUIN, IV ZOSYN, RESPIRATORY TREATMENTS, SUPPLEMENTAL OXYGEN, TUSSIONEX, AND ROBITUSSIN. WE WILL CONTINUE WITH CURRENT PLAN OF CARE AND RESUME HOME MEDS TODAY. OTHERWISE, WE PLAN TO FOLLOW UP WITH AM LABS AND CONTINUE TO MONITOR. - Past Medical Family Social History Past Med/Fam/Surg Hx: No changes since H&P Allergies: Allergies strawberry Allergy (Verified 08/28/17 21:05) labetalol Adverse Reaction (Verified 08/28/17 21:05) - Review of Systems ROS: No change since H&P - Vital Signs and I&O's Vital Signs: Temperature 98.1 F Pulse Rate [Right Brachial] 71 Pulse Rate 88 Respiratory Rate 30 Blood Pressure [Right Arm] 175/79 Blood Pressure [Left Arm] 132/60 Blood Pressure [Left Radial 150/80 Artery] Blood Pressure 167/72 O2 Sat by Pulse Oximetry 98 Intake and Output: Intake & Output 02/07/19 02/08/19 02/09/19 02/10/19 11:59 11:59 11:59 11:59 Intake Total 1375 / 1375 955 / 955 Output Total 1650 / 1650 0 / 0 Balance -275 / -275 955 / 955 - Physical Exam Oriented: Normal Eyes: Normal Ear: Normal Nose: Normal Throat: Normal Respiratory: Generalized, Wheezes Cardiovascular: Normal. negative: S3, S4, Murmur : Normal Auscultation: Bowel Sounds: Normal Palpation: Normal Tenderness: Normal Skin: Normal Musculoskeletal: Normal Psychiatric: Normal Mood Description: Calm Affect: Normal Speech Pattern: Clear, Appropriate - Laboratory and Diagnostics Result Diagrams: 02/09/19 04:12 02/09/19 04:12 Labs: 02/08/19 15:39 Sputum - Expectorated Sputum Sputum Culture - Preliminary 02/08/19 15:39 Sputum - Expectorated Sputum - Final Laboratory WBC 5.9 X10^3/uL (3.6-10.0) 02/09/19 04:12 RBC 3.73 X10^6/uL (3.5-5.4) 02/09/19 04:12 Hgb 10.0 g/dL (12.0-16.0) L 02/09/19 04:12 Hct 30.0 % (36.0-47.0) L 02/09/19 04:12 MCV 80.4 fL (80.0-100.0) 02/09/19 04:12 MCH 26.8 pg (27.0-34.0) L 02/09/19 04:12 MCHC 33.3 g/dL (33.0-35.0) 02/09/19 04:12 RDW 18.4 % (11.6-16.5) H 02/09/19 04:12 Plt Count 225 X10^3/uL (150.0-450.0) 02/09/19 04:12 MPV 9.1 fL (7.4-11.0) 02/09/19 04:12 Neut % (Auto) 52.6 % (42.0-75.0) 02/09/19 04:12 Lymph % (Auto) 36.9 % (21.0-51.0) 02/09/19 04:12 [place] % (Auto) 9.6 % (0.0-13.0) 02/09/19 04:12 Eos % (Auto) 0.6 % (0.9-2.9) L 02/09/19 04:12 Baso % (Auto) 0.3 % (0.2-1.0) 02/09/19 04:12 Neut # (Auto) 3.1 x10^3/uL (2.2-4.8) 02/09/19 04:12 Lymph # (Auto) 2.2 X10^3/uL (1.3-2.9) 02/09/19 04:12 [place] # (Auto) 0.6 x10^3/uL (0.3-0.8) 02/09/19 04:12 Eos # (Auto) 0.0 x10^3/uL (0.0-0.2) 02/09/19 04:12 Baso # (Auto) 0.0 X10^3/uL (0.0-0.1) 02/09/19 04:12 Absolute Nucleated RBC 0.0 /100WBC 02/09/19 04:12 Sodium 140 mmol/L (136-145) 02/09/19 04:12 Corrected Sodium TNP 02/09/19 04:12 Potassium 4.2 mmol/L (3.5-5.1) 02/09/19 04:12 Chloride 107 mmol/L (98-107) 02/09/19 04:12 Carbon Dioxide 19.6 mmol/L (21-32) L 02/09/19 04:12 BUN 22 mg/dL (7-18) H 02/09/19 04:12 Creatinine 1.73 mg/dL (0.55-1.02) H 02/09/19 04:12 Est GFR (MDRD) Af Amer 37 (>60) L 02/09/19 04:12 Est GFR (MDRD) Non-Af 31 (>60) L 02/09/19 04:12 Glucose 77 mg/dL (65-99) 02/09/19 04:12 Calcium 8.5 mg/dL (8.5-10.1) 02/09/19 04:12 Corrected Calcium 9.3 mg/dL (8.5-10.1) 02/09/19 04:12 Total Bilirubin 0.20 mg/dL (0.2-1.0) 02/09/19 04:12 AST 14 Units/L (15-37) L 02/09/19 04:12 ALT 11 Units/L (12-78) L 02/09/19 04:12 Alkaline Phosphatase 87 Units/L (46-116) 02/09/19 04:12 Total Protein 7.1 g/dL (6.4-8.2) 02/09/19 04:12 Albumin 3.0 g/dL (3.4-5.0) L 02/09/19 04:12 Globulin 4.1 g/dL (2.5-4.5) 02/09/19 04:12 Albumin/Globulin Ratio 0.7 Ratio (1.1-2.1) L 02/09/19 04:12 - Plan (1) Pneumonia Status: Acute Qualifiers: Pneumonia type: due to unspecified organism Laterality: unspecified laterality Lung location: unspecified part of lung Qualified Code(s): J18.9 - Pneumonia, unspecified organism Plan: IV LEVAQUIN, IV ZOSYN, RESPIRATORY TREATMENTS, SUPPLEMENTAL OXYGEN, CONTINUE TO MONITOR (2) COPD (chronic obstructive pulmonary disease) Status: Chronic Qualifiers: COPD type: unspecified COPD Qualified Code(s): J44.9 - Chronic obstructive pulmonary disease, unspecified Plan: IV LEVAQUIN, IV ZOSYN, RESPIRATORY TREATMENTS, SUPPLEMENTAL OXYGEN, CONTINUE TO MONITOR
--- NOTE | 2019-02-09 21:57 | DR.UPDATE ---
H&P Update History and Physical Update: WAS SEEN IN THE OFFICE TODAY FOR COMPLAINTS OF A PERSISTENT, PRODUCTIVE COUGH X 1 WEEK. SHE REPORTED USE OF RESPIRATORY TREATMENTS WITHOUT IMPROVEMENT IN SYMPTOMS. SHE WAS ADMITTED FOR FURTHER EVALUATION AND TREATMENT OF PNEUMONIA VS COPD EXACERBATION. ON ADMISSION, WE PLAN TO OBTAIN LABS AND C HEST XRAY. WE WILL START HER ON THE PNEUMONIA PROTOCOL WITH IV LEVAQUIN AND IV ZOSYN. OTHERWISE, WE WILL FOLLOW UP WITH AM LABS AND CONTINUE TO MONITOR. NO CHANGES NOTED TO H&P Changes noted: NO
[2019-02-10] MEDS: DUONEB 0.5 MG/3 MG NEB SCH ×6 (00:50→20:34)
[2019-02-10 05:23] LABS: BASOPHILS % (AUTO) 0.4 % (0.2-1.0); EOSINOPHILS % (AUTO) 0.8 % (0.9-2.9); HEMATOCRIT 28.3 % (36.0-47.0); HEMOGLOBIN 9.7 g/dL (12.0-16.0); LYMPHOCYTES # (AUTO) 2.1 X10^3/uL (1.3-2.9); LYMPHOCYTES % (AUTO) 37.1 % (21.0-51.0); MEAN CORPUSCULAR HEMOGLOBIN 27.2 pg (27.0-34.0); MEAN CORPUSCULAR HGB CONC 34.2 g/dL (33.0-35.0); MEAN CORPUSCULAR VOLUME 79.5 fL (80.0-100.0); MEAN PLATELET VOLUME 9.1 fL (7.4-11.0); MONOCYTES # (AUTO) 0.5 x10^3/uL (0.3-0.8); MONOCYTES % (AUTO) 8.3 % (0.0-13.0); NEUTROPHILS # (AUTO) 3.1 x10^3/uL (2.2-4.8); NEUTROPHILS % (AUTO) 53.4 % (42.0-75.0); PLATELET COUNT 207 X10^3/uL (150.0-450.0); RED BLOOD COUNT 3.56 X10^6/uL (3.5-5.4); WHITE BLOOD COUNT 5.7 X10^3/uL (3.6-10.0)
[2019-02-10 05:37] LABS: ALANINE AMINOTRANSFERASE 11 Units/L (12-78); ALBUMIN 2.8 g/dL (3.4-5.0); ALKALINE PHOSPHATASE 79 Units/L (46-116); ASPARTATE AMINO TRANSFERASE 13 Units/L (15-37); BLOOD UREA NITROGEN 18 mg/dL (7-18); CALCIUM 8.5 mg/dL (8.5-10.1); CHLORIDE 109 mmol/L (98-107); COR CA(FOR HYPOALB) 9.5 mg/dL (8.5-10.1); CREATININE 1.61 mg/dL (0.55-1.02); SODIUM 141 mmol/L (136-145); TOTAL PROTEIN 6.7 g/dL (6.4-8.2); eGFR NON BLACK RACES 33 (>60)
[2019-02-10] MEDS ORDERED: NS 1/2 1000 ML IV 1,000 ML ONE ×2 (05:39→21:09)
[2019-02-10] MEDS: NS 1/2 1000 ML IV 1,000 ML IV SCH ×3 (05:57→21:18)
[2019-02-10] MEDS: ZOSYN VIAL 3.375 GRAMS 3.375 G in NS 100 ML IV + SPIKE MINIBAG* 100 ML IV SCH ×3 (05:58→21:17)
--- NOTE | 2019-02-10 06:17 | RAD ---
HISTORY: Shortness of breath Study: Chest AP portable Comparison: 02/09/2019, 02/08/2019 Findings: The heart is within normal limits in size. The khadar are normal. The aorta is calcified. The lungs are well inflated and free of acute infiltrates. No pleural effusions are identified. The bony thorax is unremarkable. IMPRESSION: Lungs clear Reported By:
[2019-02-10] MEDS: NICOTINE PATCH TD SCH (08:49)
[2019-02-10] MEDS: PROTONIX TAB 40 MG PO SCH ×2 (08:49→21:17)
[2019-02-10] MEDS: SYNTHROID 112 mcg TAB PO SCH (08:49)
[2019-02-10] MEDS: APRESOLINE TAB 25 MG PO SCH ×2 (08:49→21:17)
[2019-02-10] MEDS: CATAPRES TAB 0.1 MG PO SCH ×2 (08:49→21:17)
[2019-02-10] MEDS: CELEXA PO SCH (08:50)
[2019-02-10] MEDS: CULTURELLE PRO-WELL PROBIOTIC CAP PO SCH (08:50)
[2019-02-10] MEDS: COZAAR PO SCH (08:50)
[2019-02-10] MEDS: ROBITUSSIN DM PO SCH ×4 (08:50→21:18)
[2019-02-10] MEDS: PLAVIX PO SCH (08:50)
[2019-02-10] MEDS: LOVENOX INJ 30 MG SYR SC SCH (08:51)
[2019-02-10] MEDS ORDERED: LEVAQUIN PREMIX IV 750 MG 750 MG/150 ML BAG IV SCH (09:00)
[2019-02-10] MEDS: PULMICORT NEB TX 0.5 MG NEB SCH ×2 (09:09→20:34)
[2019-02-11] MEDS: DUONEB 0.5 MG/3 MG NEB SCH ×4 (00:30→12:50)
[2019-02-11] MEDS: ZOSYN VIAL 3.375 GRAMS 3.375 G in NS 100 ML IV + SPIKE MINIBAG* 100 ML IV SCH ×2 (05:07→13:36)
[2019-02-11 06:22] LABS: BASOPHILS % (AUTO) 0.3 % (0.2-1.0); EOSINOPHILS % (AUTO) 0.6 % (0.9-2.9); HEMATOCRIT 28.6 % (36.0-47.0); HEMOGLOBIN 9.6 g/dL (12.0-16.0); LYMPHOCYTES # (AUTO) 1.6 X10^3/uL (1.3-2.9); MEAN CORPUSCULAR HEMOGLOBIN 26.7 pg (27.0-34.0); MEAN CORPUSCULAR HGB CONC 33.4 g/dL (33.0-35.0); MEAN PLATELET VOLUME 8.5 fL (7.4-11.0); MONOCYTES # (AUTO) 0.5 x10^3/uL (0.3-0.8); MONOCYTES % (AUTO) 9.4 % (0.0-13.0); NEUTROPHILS # (AUTO) 3.3 x10^3/uL (2.2-4.8); NEUTROPHILS % (AUTO) 59.7 % (42.0-75.0); PLATELET COUNT 218 X10^3/uL (150.0-450.0); RED BLOOD COUNT 3.57 X10^6/uL (3.5-5.4); RED CELL DISTRIBUTION WIDTH 17.8 % (11.6-16.5); WHITE BLOOD COUNT 5.5 X10^3/uL (3.6-10.0)
[2019-02-11 06:31] LABS: ALANINE AMINOTRANSFERASE 12 Units/L (12-78); ALBUMIN 2.8 g/dL (3.4-5.0); ALKALINE PHOSPHATASE 79 Units/L (46-116); ASPARTATE AMINO TRANSFERASE 16 Units/L (15-37); BLOOD UREA NITROGEN 16 mg/dL (7-18); CALCIUM 8.8 mg/dL (8.5-10.1); CARBON DIOXIDE 21.7 mmol/L (21-32); CHLORIDE 109 mmol/L (98-107); COR CA(FOR HYPOALB) 9.8 mg/dL (8.5-10.1); CREATININE 1.51 mg/dL (0.55-1.02); SODIUM 140 mmol/L (136-145); TOTAL PROTEIN 6.9 g/dL (6.4-8.2); eGFR NON BLACK RACES 36 (>60)
--- NOTE | 2019-02-11 06:44 | RAD ---
Examination: Portable AP chest History: SOB Comparison 02/10/2019 Findings: Continued normal heart size, tortuous aorta, lungs clear of active disease. No pleural abnormality noted. Impression: No interval change or acute abnormality demonstrated. Reported By:
[2019-02-11] MEDS: COZAAR PO SCH (08:50)
[2019-02-11] MEDS: CATAPRES TAB 0.1 MG PO SCH (08:50)
[2019-02-11] MEDS: ROBITUSSIN DM PO SCH ×2 (08:50→12:26)
[2019-02-11] MEDS: SYNTHROID 112 mcg TAB PO SCH (08:50)
[2019-02-11] MEDS: CULTURELLE PRO-WELL PROBIOTIC CAP PO SCH (08:51)
[2019-02-11] MEDS: PROTONIX TAB 40 MG PO SCH (08:51)
[2019-02-11] MEDS: CELEXA PO SCH (08:51)
[2019-02-11] MEDS: LOVENOX INJ 30 MG SYR SC SCH (08:52)
[2019-02-11] MEDS: APRESOLINE TAB 25 MG PO SCH (08:52)
[2019-02-11] MEDS: PLAVIX PO SCH (08:52)
[2019-02-11] MEDS: NS 1/2 1000 ML IV 1,000 ML IV SCH ×2 (08:53→12:26)
[2019-02-11] MEDS: NICOTINE PATCH TD SCH (08:53)
[2019-02-11] MEDS ORDERED: NS 1/2 1000 ML IV 1,000 ML ONE (08:55)
[2019-02-11] MEDS: PULMICORT NEB TX 0.5 MG NEB SCH (09:05)
[2019-02-11 14:15] VITALS: BP 158/72
== END 2019-02-11 15:25 | disposition home or self-care (01) | DRG 194 ==
LOC: ICU 14:17
PROVIDERS: ADMIT Internal Medicine; ATTEND Internal Medicine
DX: R94.4 Abnormal results of kidney function studies; J13 Pneumonia due to Streptococcus pneumoniae; I10 Essential (primary) hypertension; R06.02 Shortness of breath; J44.1 Chronic obstructive pulmonary disease with (acute) exacerbation
CPT/HCPCS: 36415; 71010; 71020; 71045; 71046; 80053; 85025; 87040; 87070; 87077; 87186; 87205; 94640; 99238; A4222; J1650; J1956; J2543; J7050; J7620; J7626

== ENCOUNTER 2019-05-30 13:52 | Observation (INO) ==
[2019-05-30 16:34] VITALS: BMI 22.1
[2019-05-30 17:09] LABS: BASOPHILS % (AUTO) 0.9 % (0.2-1.0); EOSINOPHILS % (AUTO) 0.8 % (0.9-2.9); HEMATOCRIT 32.6 % (36.0-47.0); HEMOGLOBIN 11.1 g/dL (12.0-16.0); LYMPHOCYTES # (AUTO) 2.2 X10^3/uL (1.3-2.9); LYMPHOCYTES % (AUTO) 46.3 % (21.0-51.0); MEAN CORPUSCULAR HEMOGLOBIN 27.7 pg (27.0-34.0); MEAN CORPUSCULAR HGB CONC 34.1 g/dL (33.0-35.0); MEAN CORPUSCULAR VOLUME 81.1 fL (80.0-100.0); MEAN PLATELET VOLUME 8.4 fL (7.4-11.0); MONOCYTES # (AUTO) 0.3 x10^3/uL (0.3-0.8); MONOCYTES % (AUTO) 7.3 % (0.0-13.0); NEUTROPHILS # (AUTO) 2.1 x10^3/uL (2.2-4.8); NEUTROPHILS % (AUTO) 44.7 % (42.0-75.0); PLATELET COUNT 233 X10^3/uL (150.0-450.0); RED BLOOD COUNT 4.02 X10^6/uL (3.5-5.4); WHITE BLOOD COUNT 4.7 X10^3/uL (3.6-10.0)
[2019-05-30 17:32] LABS: ALANINE AMINOTRANSFERASE 10 Units/L (12-78); ALBUMIN 3.4 g/dL (3.4-5.0); ALKALINE PHOSPHATASE 92 Units/L (46-116); AMYLASE 95 Units/L (25-115); ASPARTATE AMINO TRANSFERASE 16 Units/L (15-37); BLOOD UREA NITROGEN 32 mg/dL (7-18); CALCIUM 8.9 mg/dL (8.5-10.1); CARBON DIOXIDE 19.7 mmol/L (21-32); CHLORIDE 111 mmol/L (98-107); CKMB % 1.5 % (<4); CREATINE KINASE 69 Units/L (26-192); CREATINE KINASE MB < 1.0 ng/mL (0-4.0); CREATININE 1.74 mg/dL (0.55-1.02); LIPASE 105 Units/L (73-393); SODIUM 141 mmol/L (136-145); TOTAL PROTEIN 7.8 g/dL (6.4-8.2); TROPONIN I < 0.02 ng/mL (0-1.5); eGFR NON BLACK RACES 30 (>60)
--- NOTE | 2019-05-30 18:01 | RAD ---
HISTORY: Shortness of breath Study: Single view chest Comparison: 02/11/2019 Findings: No infiltrate, effusion or pneumothorax identified. The cardiac and mediastinal contours are within normal limits. There are degenerative changes of the bony thorax. IMPRESSION: 1. No acute cardiopulmonary abnormality. Reported By:
[2019-05-30] MEDS: NS 1000 ML 1,000 ML IV SCH (19:11)
[2019-05-30] MEDS: DUONEB 0.5 MG/3 MG NEB SCH (20:59)
[2019-05-30] MEDS: PROTONIX INJ 40 MG VIAL IVP SCH (21:05)
[2019-05-30 21:32] LABS: CKMB % 1.5 % (<4); CREATINE KINASE 68 Units/L (26-192); CREATINE KINASE MB < 1.0 ng/mL (0-4.0); TROPONIN I < 0.02 ng/mL (0-1.5)
[2019-05-30 21:48] LABS: BILIRUBIN,URINE NEGATIVE (NEGATIVE); BLOOD/HEMOGLOBIN,URINE NEGATIVE (NEGATIVE); GLUCOSE, URINE NEGATIVE (NEGATIVE); KETONES,URINE NEGATIVE (NEGATIVE); LEUKOCYTE ESTERASE ,URINE NEGATIVE (NEGATIVE); NITRITES,URINE NEGATIVE (NEGATIVE); PROTEIN,URINE 1+ (NEGATIVE); UROBILINOGEN,URINE NORMAL (NORMAL)
[2019-05-30 21:52] LABS: APPEARANCE,URINE CLEAR (CLEAR); COLOR,URINE YELLOW (YELLOW)
[2019-05-30 21:55] LABS: AMORPHOUS SEDIMENT,UR TRACE /HPF (NEGATIVE); BACTERIA,URINE NEGATIVE /HPF (NEGATIVE); RBC,URINE NONE SEEN /HPF (0-3); SQUAMOUS EPITHELIAL CELL,UR RARE /HPF (NEGATIVE)
[2019-05-31 01:10] LABS: CKMB % 1.6 % (<4); CREATINE KINASE 64 Units/L (26-192); TROPONIN I < 0.02 ng/mL (0-1.5)
[2019-05-31 06:06] LABS: BASOPHILS % (AUTO) 0.4 % (0.2-1.0); EOSINOPHILS % (AUTO) 1.1 % (0.9-2.9); HEMATOCRIT 30.4 % (36.0-47.0); HEMOGLOBIN 10.2 g/dL (12.0-16.0); LYMPHOCYTES # (AUTO) 1.8 X10^3/uL (1.3-2.9); LYMPHOCYTES % (AUTO) 42.4 % (21.0-51.0); MEAN CORPUSCULAR HEMOGLOBIN 27.1 pg (27.0-34.0); MEAN CORPUSCULAR HGB CONC 33.5 g/dL (33.0-35.0); MEAN CORPUSCULAR VOLUME 80.9 fL (80.0-100.0); MEAN PLATELET VOLUME 8.8 fL (7.4-11.0); MONOCYTES # (AUTO) 0.4 x10^3/uL (0.3-0.8); MONOCYTES % (AUTO) 8.7 % (0.0-13.0); NEUTROPHILS % (AUTO) 47.4 % (42.0-75.0); PLATELET COUNT 211 X10^3/uL (150.0-450.0); RED BLOOD COUNT 3.75 X10^6/uL (3.5-5.4); RED CELL DISTRIBUTION WIDTH 17.2 % (11.6-16.5); WHITE BLOOD COUNT 4.3 X10^3/uL (3.6-10.0)
[2019-05-31] MEDS: DUONEB 0.5 MG/3 MG NEB SCH ×5 (06:06→20:44)
[2019-05-31] MEDS: NS 1000 ML 1,000 ML IV SCH ×3 (06:15→20:25)
[2019-05-31 06:22] LABS: ALANINE AMINOTRANSFERASE 7 Units/L (12-78); ALKALINE PHOSPHATASE 84 Units/L (46-116); ASPARTATE AMINO TRANSFERASE 16 Units/L (15-37); BLOOD UREA NITROGEN 29 mg/dL (7-18); CALCIUM 8.4 mg/dL (8.5-10.1); CARBON DIOXIDE 17.1 mmol/L (21-32); CHLORIDE 113 mmol/L (98-107); COR CA(FOR HYPOALB) 9.2 mg/dL (8.5-10.1); CREATININE 1.64 mg/dL (0.55-1.02); SODIUM 142 mmol/L (136-145); TOTAL PROTEIN 7.2 g/dL (6.4-8.2); eGFR NON BLACK RACES 33 (>60)
[2019-05-31] MEDS ORDERED: PHARMACY CONSULT - DOSE _____ XX SCH (09:00)
[2019-05-31] MEDS: PROTONIX INJ 40 MG VIAL IVP SCH (09:15)
[2019-05-31] MEDS ORDERED: ATIVAN TAB 1 MG PO PRN (11:00)
[2019-05-31] MEDS ORDERED: PATIENT'S HOME MEDICATION (Fluticasone-Umeclidin-Vilanter [Fluticasone-Umeclidin-Vilanter] IN SCH (11:15)
[2019-05-31] MEDS: APRESOLINE TAB 25 MG PO SCH ×2 (11:53→20:40)
[2019-05-31] MEDS: LINZESS PO SCH (11:54)
[2019-05-31] MEDS: COZAAR PO SCH (11:54)
[2019-05-31] MEDS: SYNTHROID 112 mcg TAB PO SCH (11:54)
--- NOTE | 2019-05-31 14:01 | CT ---
HISTORY: Gastric abdominal pain Study: CT abdomen and pelvis without contrast Comparison: None Technique: Multiple axial images of the abdomen and pelvis were obtained without IV contrast. Dose reduction techniques including Automated Exposure Control (AEC) and adjustment of mA and kV were utilized. Findings: Please note evaluation is limited without use of IV contrast. The visualized lung bases are clear. The liver, spleen, pancreas, and adrenal glands are unremarkable in their unenhanced CT appearance. Gallbladder is removed. There is left renal atrophy. No obstructive uropathy or stones identified. The ureters are normal. No free intraperitoneal air. Oral contrast reaches the hepatic flexure without evidence of bowel obstruction. There is a supraumbilical ventral hernia containing nonincarcerated loop of transverse colon. Just inferiorly there is an additional fat containing ventral hernia superior to the umbilicus. Appendix removed. No free fluid identified. There are partially visualized bilateral hip prostheses with metallic artifact limiting evaluation of the pelvis. Limited evaluation of vascular structures due to lack of contrast. No pathologically enlarged lymph nodes are identified. Urinary bladder is not well visualized due to metallic artifact. Uterus is removed. IMPRESSION: 1. No acute abnormality identified on noncontrast imaging. 2. Ventral hernias as described, with the superior-most hernia containing nonincarcerated loop of transverse colon. 3. Left renal atrophy and postsurgical changes as described. Reported By:
[2019-05-31] MEDS: CATAPRES TAB 0.1 MG PO SCH ×2 (15:21→20:41)
[2019-05-31] MEDS: LOVENOX INJ 30 MG SYR SC SCH (15:26)
[2019-05-31] MEDS: PULMICORT NEB TX 0.5 MG NEB SCH (20:44)
[2019-05-31] MEDS ORDERED: NEURONTIN CAP 300 MG PO SCH (21:00)
[2019-05-31] MEDS ORDERED: LIPITOR TAB 40 MG PO SCH (21:00)
[2019-06-01] MEDS ORDERED: NORCO 5/325 MG TAB ONE (01:01)
[2019-06-01] MEDS: NORCO 5/325 MG TAB PO PRN ×2 (01:47→08:41)
[2019-06-01] MEDS: DUONEB 0.5 MG/3 MG NEB SCH ×2 (04:56→05:00)
[2019-06-01 06:44] LABS: BASOPHILS % (AUTO) 0.4 % (0.2-1.0); EOSINOPHILS % (AUTO) 0.9 % (0.9-2.9); HEMATOCRIT 28.3 % (36.0-47.0); HEMOGLOBIN 9.6 g/dL (12.0-16.0); LYMPHOCYTES # (AUTO) 2.4 X10^3/uL (1.3-2.9); LYMPHOCYTES % (AUTO) 48.5 % (21.0-51.0); MEAN CORPUSCULAR HEMOGLOBIN 27.5 pg (27.0-34.0); MEAN CORPUSCULAR VOLUME 80.8 fL (80.0-100.0); MEAN PLATELET VOLUME 9.3 fL (7.4-11.0); MONOCYTES # (AUTO) 0.4 x10^3/uL (0.3-0.8); MONOCYTES % (AUTO) 7.6 % (0.0-13.0); NEUTROPHILS # (AUTO) 2.1 x10^3/uL (2.2-4.8); NEUTROPHILS % (AUTO) 42.6 % (42.0-75.0); PLATELET COUNT 200 X10^3/uL (150.0-450.0); RED BLOOD COUNT 3.51 X10^6/uL (3.5-5.4); RED CELL DISTRIBUTION WIDTH 17.4 % (11.6-16.5); WHITE BLOOD COUNT 4.9 X10^3/uL (3.6-10.0)
[2019-06-01 07:00] LABS: ALANINE AMINOTRANSFERASE 8 Units/L (12-78); ALBUMIN 2.8 g/dL (3.4-5.0); ALKALINE PHOSPHATASE 79 Units/L (46-116); ASPARTATE AMINO TRANSFERASE 16 Units/L (15-37); BLOOD UREA NITROGEN 22 mg/dL (7-18); CARBON DIOXIDE 17.9 mmol/L (21-32); CHLORIDE 112 mmol/L (98-107); CREATININE 1.43 mg/dL (0.55-1.02); SODIUM 141 mmol/L (136-145); TOTAL PROTEIN 6.7 g/dL (6.4-8.2); eGFR NON BLACK RACES 38 (>60)
[2019-06-01] MEDS: PULMICORT NEB TX 0.5 MG NEB SCH (08:13)
[2019-06-01] MEDS: CATAPRES TAB 0.1 MG PO SCH (08:40)
[2019-06-01] MEDS: APRESOLINE TAB 25 MG PO SCH (08:40)
[2019-06-01] MEDS: PROTONIX INJ 40 MG VIAL IVP SCH (08:40)
[2019-06-01] MEDS: LINZESS PO SCH (08:40)
[2019-06-01] MEDS: COZAAR PO SCH (08:40)
[2019-06-01] MEDS: LOVENOX INJ 30 MG SYR SC SCH (08:41)
[2019-06-01] MEDS: NS 1000 ML 1,000 ML IV SCH ×2 (08:44→08:49)
[2019-06-01] MEDS: SYNTHROID 112 mcg TAB PO SCH (08:50)
[2019-06-01 09:22] VITALS: BP 161/67
== END 2019-06-01 10:59 | disposition home or self-care (01) ==
LOC: MED/SURG
PROVIDERS: ADMIT Internal Medicine; ATTEND Internal Medicine
DX: I10 Essential (primary) hypertension; B96.81 Helicobacter pylori [H. pylori] as the cause of diseases classified elsewhere; R10.84 Generalized abdominal pain; R11.2 Nausea with vomiting, unspecified; R06.02 Shortness of breath
CPT/HCPCS: 36415; 71010; 71045; 74176; 80053; 81001; 82150; 82378; 82550; 82553; 83690; 84484; 85025; 87338; 93005; 93306; 94640; 94760; 96367; A4216; C9113; G0378; J1650; J7030; J7620; J7626